=== PATIENT | female | born 1985 | race Caucasian/White ===

== ENCOUNTER → 2019-06-05 11:33 | Outpatient (CLI) | payer OTHER, SELFPAY ==
[2019-06-09 13:07] LABS: Age Gdln ACOG Testing 30-65 (.)
[2019-06-09 15:44] LABS: HPV APTIMA, High Risk Negative (Negative)
[2019-06-09 15:45] LABS: HPV Reflexed? YES, CHARGE PATIENT
== END ==
PROVIDERS: Visit Provider Obstetrics & Gynecology
DX: Z12.4 Encounter for screening for malignant neoplasm of cervix (principal)
CPT/HCPCS: 87624; 88175; G0145

== ENCOUNTER 2020-09-27 23:08 | Outpatient (RCR) | payer OTHER, SELFPAY ==
[2017-12-09 10:58] VITALS: BMI 23.0
== END 2020-10-21 23:59 ==
LOC: EMPH 23:08
PROVIDERS: PCP Family Medicine; Visit Provider Family Medicine Geriatric Medicine
DX: Z03.818 Encounter for observation for suspected exposure to other biological agents ruled out (principal)
CPT/HCPCS: 87426

== ENCOUNTER → 2022-01-14 | Outpatient (CLI) | payer OTHER, SELFPAY ==
[2022-01-15 11:14] LABS: Bacteria 0 SEEN /hpf (None Seen); Mucous, Urine 0 SEEN /hpf (<or=2+); Red Blood Cells-Urine 0 SEEN /hpf (0-5); Squamous Epithelial Cells - UA 0 SEEN /hpf (5-10)
[2022-01-15 11:30] LABS: Color, Urine Straw (Yellow); Glucose, Dipstick Normal (Normal); Ketone-Dipstick Negative (Negative); Leukocyte Esterase-Dipstick 25 /ul (Negative); Nitrite-Dipstick Negative (Negative); Occult Blood-Urine Negative /ul (Negative); Protein-Dipstick Negative (Negative); Urine Bilirubin Dipstick Negative (Negative); Urine Clarity Clear (Clear); Urine Urobilinogen Normal (Normal)
[2022-01-15 11:59] LABS: White Blood Cells 0-5 SEEN /hpf (0-5)
== END | disposition home or self-care (01) ==
LOC: LABSPEC 01-15 10:02
PROVIDERS: PCP Family Medicine; Visit Provider Physician Assistant Medical
DX: R39.15 Urgency of urination (principal); R35.0 Frequency of micturition
CPT/HCPCS: 81001; 87077; 87086; 87088; 87186

== ENCOUNTER → 2024-10-06 | Outpatient (CLI) | payer OTHER, SELFPAY ==
[2024-10-08 08:09] LABS: Thyroid Peroxidase AB 17 IU/mL (0-34)
[2024-10-09 14:08] LABS: HPV APTIMA, High Risk Negative (Negative)
== END | disposition home or self-care (01) ==
PROVIDERS: PCP Family Medicine; Referring Provider Nurse Practitioner Family; Visit Provider Nurse Practitioner Family
DX: Z13.29 Encounter for screening for other suspected endocrine disorder (principal); Z12.4 Encounter for screening for malignant neoplasm of cervix
CPT/HCPCS: 36415; 84439; 84443; 84481; 86376; 87624; 88175; G0145

== ENCOUNTER → 2025-06-19 | Outpatient (CLI) | payer OTHER, SELFPAY ==
[2025-06-19 13:58] VITALS: BP 141/94; PULSE 87; RESP 16; TEMP 37.2; O2SAT 98; BMI 29.2
--- NOTE | 2025-06-19 14:03 | ED.RN ---
pt was pre registered. dr kee told pt to come in to be seen private, not ed visit
--- OUTSIDE RECORDS SUMMARY | 2025-06-19 14:11 | XMS RPT_ITS | CCD ---
Author Organization [facility] Care Team Providers Care Engineering Specialist Name Role Phone Shamika Shepard DC Unavailable Dr. Swathi Bond Primary Care Provider Dr. Swathi Bond Referring Provider Dr. Shamika Shepard Attending Provider [phone] LYNNE, [place] Opal Murray Attending Provider Swathi Bond MD Primary Care Provider Unavailable Primary Care Provider UnavailDORI Rome Attending Unavailable Swathi oBnd MD Primary Care Provider Dr. Swathi Bond MD Primary Care Provider Dr. Swathi Bond MD Referring Provider Audelia DUCT CLEANER-CBecca Attending Provider Audelia DUCT CLEANER-CBecca Referring Provider Assessment, Health Risk Attending Swathi Saenz Primary Care Unavailable Swathi Bond Primary Care Unavailable Assessment, Health Risk Attending Unavaila ble Assessment, Health Risk Referring Unavaila Becca Simon Attending Unavailable Becca Win Referring Unavailable Swathi Bond Primary Care Unavailable Swathi Bond Primary Care Unavailable Swathi Bond Referring Unavailable Shamika Shepard Attending Unavailable Swathi Bond Primary Care Unavailable Swathi Bond Referring Unavailable Becca Win Attending Unavailable DARVIN RODRIGUEZ Attending Unavailable SWATHI BOND Primary Care Unavailable Medications Current Medications Medication Drug Class(es) Dates Sig (Normalized) Sig (Original) copper 313 mg drug implant (1 source) Copper-containing Intrauterine Device Start: 10-06-2024 Copper (Paragard T 380a) 380 square mm intrauterine device Active 1 NMA INTRA-UTER ONCE October 06, 2024 12:00am as a single dose [place] (Nk) (1 source) Start: 01-13-2019 [place] (Nk) Active January 13, 2019 12:00am Completed/Discontinued Medications Medication Drug Class(es) Dates Sig (Normalized) Sig (Original) amoxicillin 500 mg oral capsule (1 source) Penicillin-class Antibacterial Start: 09-29-2022 End: 05-06-2023 take 1 capsule by mouth three times daily Amoxicillin 500 mg capsule Discontinued 500 mg PO THREE TIMES A DAY September 29, 2022 12:00am May 06, 2023 10:05am amphetamine aspartate 2.5 mg / amphetamine sulfate 2.5 mg / dextroamphetamine saccharate 2.5 mg / dextroamphetamine sulfate 2.5 mg oral tablet (2 sources) Central Nervous System Stimulant Start: 05-06-2023 End: 10-06-2024 take 1 tablet by mouth every four to six hours as needed Dextroamphetamine- Amphetamine (Adderall) 10 mg tablet Discontinued 10 mg PO TWICE A DAY as needed June 02, 2024 10:13am October 06, 2024 1:11pm administer doses at least 4-6 hours apart azithromycin 250 mg oral tablet (1 source) Macrolide Antimicrobial Start: 09-28-2022 End: 09-29-2022 Azithromycin (Zithromax Z-Giancarlo) 250 mg tablet Discontinued 0 PO .COMPLEX 6 September 28, 2022 12:00am September 29, 2022 2:45pm For 250 mg dose pack: take 500 mg today (day 1), then 250 mg for 4 days (days 2-5) PO Ethinyl Estradiol / Levonorgestrel (1 source) Progestin, Estrogen, Progestin-containi ng Intrauterine Device Start: 08-31-2011 take 1 tablet by mouth once daily Levonorgestrel-Eth inyl Estrad (AVIANE) 0.1-20 mg-mcg ORAL per tablet Indications: General counseling for prescription of oral contraceptives Take 1 tablet by mouth once daily. 3 Package 2 08/31/2011 Active Comment on above: Take 1 tablet by esha once daily. ibuprofen 800 mg oral tablet (2 sources) Nonsteroidal Anti-inflammatory Drug Start: 03-06-2017 End: 12-09-2017 take 1 tablet by mouth three times daily as needed for pain Ibuprofen 800 MG tablet Discontinued 800 mg PO 3 TIMES DAILY NEEDED as needed for pain or cramping March 06, 2017 12:00am December 09, 2017 11:06am nitrofurantoin, macrocrystals 25 mg / nitrofurantoin, monohydrate 75 mg oral capsule (3 sources) Nitrofuran Antibacterial Start: 01-18-2022 End: 01-23-2022 take 1 capsule by mouth every twelve hours at mealtime Nitrofurantoin Monohyd/M-Cryst (Macrobid) 100 mg capsule Discontinued 100 mg PO Q12H 10 5 January 18, 2022 12:00am January 22, 2022 12:00am January 23, 2022 12:03am must administer with a meal/food Start: 12-09-2017 End: 12-16-2017 take 1 capsule by mouth every twelve hours at mealtime Nitrofurantoin Monohyd/M-Cryst (Macrobid) 100 mg capsule Discontinued 1 NMA PO Q12H 14 December 09, 2017 12:00am December 15, 2017 12:00am December 16, 2017 12:07am administer with a meal/food; swallow whole; do not open, crush, dissolve , or chew predniSONE 10 mg oral tablet (1 source) Start: 09-28-2022 End: 05-06-2023 Prednisone 10 mg tablet Discontinued 10 mg PO .COMPLEX September 28, 2022 12:00am May 06, 2023 10:05am Take 4 pills for 3 days, 3 pills for 3 days, 2 pills for 3 days, take 1 pill for 3 days Vit,Edkn48-Huof-Wkn ic (1 source) Start: 07-27-2015 End: 12-09-2017 take 1 tablet by mouth once daily Vit,Knpp13-Vwrj-Hhmp c Discontinued 1 TABLET PO DAILY 0 July 27, 2015 1:00am December 09, 2017 11:06am Vit,Oqkx34-Vovo-Oln ic 1 TABLET tablet (1 source) Start: 07-27-2015 End: 12-09-2017 take 1 tablet by mouth once daily Vit,Nlgl10-Zrcu-Hser c 1 TABLET tablet Discontinued 1 {tbl} PO DAILY July 27, 2015 1:00am December 09, 2017 11:06am Vit-Iron Fumarate-FA ( PLUS) 27-1 mg ORAL Tab (1 source) Start: 10-03-2011 take 1 tablet by mouth once daily Vit-Iron Fumarate-FA ( PLUS) 27-1 mg ORAL Tab Take 1 tablet by mouth once daily. 90 tablet 3 10/03/2011 Active Comment on above: Take 1 tablet by esha th once daily. W/O A VIT-FE FUM-FA (7 sources) Start: 10-23-2016 BP MULTINATAL PLUS 30-1 MG TABS 1 daily W/O A VIT-FE FUM-FA [id number] Lanny Richard W/O A VIT-FE FUM-FA (3 sources) Start: 10-23-2016 BP MULTINATAL PLUS 30-1 MG TABS 1 daily W/O A VIT-FE FUM-FA [id number] Lanny Richard Problems Active Problems Problem Classification Problem Date Documented Da te Episodic/Chronic Adjustment disorders (9 sources) Bereavement; Translations: [Adjustment disorder, unspecified] Onset: 11-15-2023 11-15-2023 Chronic Genitourinary symptoms and ill-defined conditions (2 sources) Female stress incontinence; Translations: [Stress incontinence (female) (male)] Onset: 04-05-2023 04-05-2023 Chronic Other bone disease and musculoskeletal deformities (20 sources) Segmental and somatic dysfunction; Translations: [Segmental and somatic dysfunction of cervical region] Onset: 10-23-2016 10-23-2016 Episodic Other nutritional; endocrine; and metabolic disorders (2 sources) Obese class I; Translations: [Obesity (BMI 30.0-34.9)] 04-20-2025 Chronic Residual codes; unclassified (2 sources) Influenza vaccination declined; Translations: [Immunization not carried out because of patient refusal] 04-20-2025 Episodic Spondylosis; intervertebral disc disorders; other back problems (1 source) Neck pain; Translations: [Cervicalgia] 05-06-2023 Episodic Unclassified (3 sources) care; Translations: [Encounter for supervision of other normal , second trimester] Onset: 10-23-2016 10-23-2016 Unclassified (2 sources) Annual Exam; Translations: [Annual Exam] Onset: 04-20-2025 Unclassified (2 sources) Health Maintenance; Translations: [Health Maintenance] Onset: 04-20-2025 Urinary tract infections (3 sources) Urinary tract infectious disease; Translations: [Urinary tract infection, site not specified] Episodic Past or Other Problems Problem Classification Problem Date Documented Da te Episodic/Chronic Contraceptive and procreative management (3 sources) Patient encounter status; Translations: [Encounter for removal of intrauterine contraceptive device] Onset: 10-06-2024 10-06-2024 Episodic Malaise and fatigue (7 sources) Fatigue; Translations: [Other fatigue] Onset: 10-30-2022 Resolved: 04-20-2025 10-30-2022 Episodic Normal and/or delivery (7 sources) Encounter for supervision of other normal , second trimester; Translations: [Encounter for supervision of other normal , second trimester] Onset: 10-23-2016 10-23-2016 Episodic Other bone disease and musculoskeletal deformities (2 sources) Segmental and somatic dysfunction of cervical region; Translations: [Nonallopathic lesions, cervical region] Onset: 07-01-2024 Episodic Other bone disease and musculoskeletal deformities (2 sources) Segmental and somatic dysfunction of lumbar region; Translations: [Nonallopathic lesions, lumbar region] Onset: 07-01-2024 Episodic Other bone disease and musculoskeletal deformities (2 sources) Segmental and somatic dysfunction of thoracic region; Translations: [Nonallopathic lesions, thoracic region] Onset: 07-01-2024 Episodic Other bone disease and musculoskeletal deformities (1 source) Segmental and somatic dysfunction of pelvic region; Translations: [Segmental and somatic dysfunction of pelvic region] Onset: 07-01-2024 Episodic Other lower respiratory disease (9 sources) Cough; Translations: [Cough] Onset: 10-30-2022 Resolved: 04-20-2025 10-30-2022 Episodic Other screening for suspected conditions (not mental disorders or infectious disease) (1 source) Encounter for screening for other suspected endocrine disorder; Translations: [Encounter for screening for other suspected endocrine disorder] Onset: 10-09-2024 Episodic Other upper respiratory infections (6 sources) Viral upper respiratory tract infection; Translations: [Acute upper respiratory infection, unspecified] Onset: 11-15-2023 Resolved: 04-20-2025 11-15-2023 Episodic Pneumonia (except that caused by tuberculosis or sexually transmitted disease) (8 sources) Pneumonia; Translations: [Pneumonia, unspecified organism] Onset: 10-30-2022 Resolved: 04-20-2025 10-30-2022 Episodic Sprains and strains (7 sources) Injury of abdominal wall; Translations: [Strain of muscle, fascia and tendon of abdomen, initial encounter] Onset: 10-30-2022 Resolved: 04-20-2025 10-30-2022 Episodic Results Test Name Value Interpretation Reference Range Facility Office Visiton 04-20-2025 Follow-up visit [id number] Dafne Zeng 1985 F Date Provider Department Center 04/20/2025 [id number] RODRIGUEZ [facility] Family History Problem Relation Age of Onset No Known Problems Father No Known Problems Mother Family Status - Relation Status Age at Father Alive Mother Alive Level of Service:60053 [place] PERIODIC PREVENTIVE MED EST PATIENT 18-39 YRS Reason for Visit and Comments: Annual Exam [83] Health Maintenance [872] - HIV Screening-declined MMR Vaccines-declined Varicella Vaccines-declined Hepatitis C Screening-declined Hepatitis B Vaccines-declined DTaP/Tdap/Td Vaccines-declined Depression Screening-completed Influenza Vaccine-declined COVID-19 Vaccine-declined [facility] Progress Noteon 04-20-2025 Progress Note 04/20/2025 Soraya Zeng (: 1985) is a 39 y.o. female , Established patient, here for evaluation of the following chief complaint(s): Annual Exam and Health Maintenance (HIV Screening-declined/MM R Vaccines-declined/Evangelina icella Vaccines-declined/Hep atitis C Screening-declined/He patitis B Vaccines-declined/DTa P/Tdap/Td Vaccines-declined/Dep ression Screening-completed/I nfluenza Vaccine-declined/COVI D-19 Vaccine-declined/) ASSESSMENT/PLAN: 1. Annual physical exam 2. Obesity (BMI 30.0-34.9) 3. Grieving 4. Influenza vaccine refused Patient here for physical exam. No acute concerns today. Chronic, uncontrolled. Patient gained 25 pounds in the last year. Discussed diet and exercise. Patient plans on getting a student success coach at her gym. Will continue to monitor. Patient still grieving loss of last year. She is going through counseling. Will continue to monitor. Patient denies vaccine at this time. Follow up for AWV in 1 year. SUBJECTIVE/OBJECTIVE: SIRIA Zeng (: 1985) is a 39 y.o. female , Established patient, here for the evaluation of the following chief complaint(s): Annual Exam and Health Maintenance (HIV Screening-declined/MM R Vaccines-declined/Evangelina icella Vaccines-declined/Hep atitis C Screening-declined/He patitis B Vaccines-declined/DTa P/Tdap/Td Vaccines-declined/Dep ression Screening-completed/I nfluenza Vaccine-declined/COVI D-19 Vaccine-declined/) Patient is here for annual physical exam. She had labs drawn earlier this month at [facility] for work. 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 CMP and Lipid panel were normal. Patient lives at home with her three children. Her last . She denies being depressed or anxious, just going through the normal grieving process. States she has a lot of support through her shinto, family, friends. She goes to counseling [place] [facility] [place] [facility] Vani Jarquin is her counselor. Patient goes to the gym twice a week. She has gained 25 pounds since her last October. She stress eats when she gets sad or misses him. Patient follows with [employer] for her pap smears and she is up to date. They recently took out an IUD she had. Patient denies any concerns today. Current Medications[1] Review of Systems Constitutional: Negative. HENT: Negative. Eyes: Negative. Respiratory: Negative. Cardiovascular: Negative. Gastrointestinal: Negative. Genitourinary: Negative. Musculoskeletal: Negative. Skin: Negative. Neurological: Negative. Psychiatric/Behaviora l: Still grieving lost . Vitals: 04/20/25 0942 BP: 102/72 Pulse: 80 Resp: 20 Temp: 37 ?C (98.6 ?F) TempSrc: Infrared SpO2: 96% Weight: 172 lb 12.8 oz (78.4 kg) Physical Exam Vitals reviewed. Constitutional: General: She is not in acute distress. Appearance: She is obese. She is not ill-appearing. HENT: Head: Normocephalic and atraumatic. Right Ear: Tympanic membrane, ear canal and external ear normal. Left Ear: Tympanic membrane, ear canal and external ear normal. Nose: Nose normal. Mouth/Throat: Mouth: Mucous membranes are moist. Pharynx: Oropharynx is clear. Eyes: Extraocular Movements: Extraocular movements intact. Conjunctiva/sclera: Conjunctivae normal. Pupils: Pupils are equal, round, and reactive to light. Cardiovascular: Rate and Rhythm: Normal rate and regular rhythm. Pulses: Normal pulses. Heart sounds: Normal heart sounds. Pulmonary: Effort: Pulmonary effort is normal. Breath sounds: Normal breath sounds. Abdominal: General: Abdomen is flat. Bowel sounds are normal. Palpations: Abdomen is soft. Musculoskeletal: General: Normal range of motion. Cervical back: Neck supple. Lymphadenopathy: Cervical: No cervical adenopathy. Skin: General: Skin is warm and dry. Capillary Refill: Capillary refill takes less than 2 seconds. Neurological: General: No focal deficit present. Mental Status: She is alert and oriented to person, place, and time. Mental status is at baseline. Psychiatric: Mood and Affect: Mood normal. Behavior: Behavior normal. An electronic signature was used to authenticate this note. KAL Leonard CNP 04/20/2025 1:32 PM [1] No current outpatient medications on file. No current facility-administered medications for this visit. [facility] Progress Note Patient was identified by name and Date of . Health Maintenance Due Topic HIV Screening-declined MMR Vaccines-declined Varicella Vaccines-declined Hepatitis C Screening-declined Hepatitis B Vaccines-declined DTaP/Tdap/Td Vaccines-declined Depression Screening-completed Influenza Vaccine-declined COVID-19 Vaccine-declined [facility] 36on 04-06-2025 36 Name of Caller: Soraya Zeng Contact Reason for Appointment: Physical needed prior to 05/23/2025 for insurance, patient scheduled for 06/30/2024 the next available. Office Name: [facility] Medication Refills need, if any: NA Medication Name: NA [facility] CBC, Employeeon 03-18-2025 Absolute Lymph 2.65 X10 3/uL Normal 0.83-4.51 [facility] Comment on above: Performed By: #### L 500.2900, L400.0100, L100.0200 #### [facility] [address] [place], [address] Absolute Neut 3.5 X10 3/uL Normal 2.0-7.7 [facility] Comment on above: Performed By: #### L 500.2900, L400.0100, L100.0200 #### [facility] [address] [place], [address] Basophils/100 WBC (Bld) 0.3 % Normal 0-1 [facility] Comment on above: Performed By: #### L 500.2900, L400.0100, L100.0200 #### [facility] [address] [place], [address] Eosinophils/100 WBC (Bld) 1.2 % Normal 0-5 [facility] Comment on above: Performed By: #### L 500.2900, L400.0100, L100.0200 #### [facility] [address] [place], [address] Erythrocyte distribution width (RBC) [Ratio] 11.9 % Normal 11.6-14.6 [facility] Comment on above: Performed By: #### L 500.2900, L400.0100, L100.0200 #### [facility] [address] [place], [address] Hematocrit (Bld) [Volume fraction] 40.6 % Normal 37-47 [facility] Comment on above: Performed By: #### L 500.2900, L400.0100, L100.0200 #### [facility] [address] [place], [address] Hemoglobin (Bld) [Mass/Vol] 14.3 g/dL Normal 12.0-15.0 [facility] Comment on above: Performed By: #### L 500.2900, L400.0100, L100.0200 #### [facility] [address] [place], [address] Lymphocytes/100 WBC (Bld) 39.1 % Normal 19-41 [facility] Comment on above: Performed By: #### L 500.2900, L400.0100, L100.0200 #### [facility] [address] [place], [address] MCH (RBC) [Entitic mass] 29.7 pg Normal 27.0-32.0 [facility] Comment on above: Performed By: #### L 500.2900, L400.0100, L100.0200 #### [facility] [address] [place], [address] MCHC (RBC) [Mass/Vol] 35.2 g/dL Normal 32-36 [facility] Comment on above: Performed By: #### L 500.2900, L400.0100, L100.0200 #### [facility] [address] [place], [address] MCV (RBC) [Entitic vol] 84.2 fL Normal 81-99 [facility] Comment on above: Performed By: #### L 500.2900, L400.0100, L100.0200 #### [facility] [address] [place], [address] Monocytes/100 WBC (Bld) 7.1 % Normal 0-10 [facility] Comment on above: Performed By: #### L 500.2900, L400.0100, L100.0200 #### [facility] [address] [place], [address] Neutrophils/100 WBC (Bld) 52.2 % Normal 47-70 [facility] Comment on above: Performed By: #### L 500.2900, L400.0100, L100.0200 #### [facility] [address] [place], [address] NRBC # 0.00 10 3/uL Normal 0-5 [facility] Comment on above: Performed By: #### L 500.2900, L400.0100, L100.0200 #### [facility] [address] [place], [address] Nucleated RBC (Bld) [#/Vol] 0 10*3/uL Normal 0-5 [facility] Comment on above: Performed By: #### L 500.2900, L400.0100, L100.0200 #### [facility] [address] [place], [address] Platelet mean volume (Bld) [Entitic vol] 10.9 fL Normal 6.2-12.0 [facility] Comment on above: Performed By: #### L 500.2900, L400.0100, L100.0200 #### [facility] [address] [place], [address] Platelets (Bld) [#/Vol] 220 10*3/uL Normal 150-450 [facility] Comment on above: Performed By: #### L 500.2900, L400.0100, L100.0200 #### [facility] [address] [place], [address] RBC (Bld) [#/Vol] 4.82 10*6/uL Normal 4.2-5.4 [facility] Comment on above: Performed By: #### L 500.2900, L400.0100, L100.0200 #### [facility] [address] [place], [address] RDW SD 36.1 fl Normal 35.1-43.9 [facility] Comment on above: Performed By: #### L 500.2900, L400.0100, L100.0200 #### [facility] [address] [place], [address] WBC (Bld) [#/Vol] 6.8 10*3/uL Normal 4.4-11.0 [facility] Comment on above: Performed By: #### L 500.2900, L400.0100, L100.0200 #### [facility] [address] [place], [address] Employee Profileon LDH 178 U/L Normal 84-246 [facility] Comment on above: Performed By: #### L 400.0100, L500.2900, L100.0200 #### [facility] [address] [place], [address] Phosphate [Mass/Vol] 3.4 mg/dL Normal 2.7-4.5 [facility] Comment on above: Performed By: #### L 400.0100, L500.2900, L100.0200 #### [facility] [address] [place], [address] URIC 5.0 mg/dL Normal 2.6-6.0 [facility] Comment on above: Result Comment: The drugs N-Acetylcysteine and Metamizole may falsely depress this assay. Performed By: #### L 400.0100, L500.2900, L100.0200 #### [facility] [address] [place], [address] Urinalysis, Employeeon 03-18 BILIRUBIN URINE Negative Normal Negative [facility] Comment on above: Order Comment: Urine , Random Performed By: #### L 400.0100, L500.2900, L100.0200 #### [facility] [address] [place], [address] Clarity (U) Clear Normal Clear [facility] Comment on above: Order Comment: Urine , Random Performed By: #### L 400.0100, L500.2900, L100.0200 #### [facility] [address] [place], [address] Color (U) Yellow Normal Yellow [facility] Comment on above: Order Comment: Urine , Random Performed By: #### L 400.0100, L500.2900, L100.0200 #### [facility] [address] [place], [address] GLUCOSE, UR Normal Normal Normal [facility] Comment on above: Order Comment: Urine , Random Performed By: #### L 400.0100, L500.2900, L100.0200 #### [facility] [address] [place], [address] KETONE UR Negative Normal Negative [facility] Comment on above: Order Comment: Urine , Random Performed By: #### L 400.0100, L500.2900, L100.0200 #### [facility] [address] [place], [address] LEUK ESTERASE Negative Normal Negative [facility] Comment on above: Order Comment: Urine , Random Performed By: #### L 400.0100, L500.2900, L100.0200 #### [facility] [address] [place], [address] Nitrite Ql (U) Negative Normal Negative [facility] Comment on above: Order Comment: Urine , Random Performed By: #### L 400.0100, L500.2900, L100.0200 #### [facility] [address] [place], [address] OCCULT BLOOD-UR Negative Normal Negative [facility] Comment on above: Order Comment: Urine , Random Performed By: #### L 400.0100, L500.2900, L100.0200 #### [facility] [address] [place], [address] pH UR 6.5 Normal 5.0 - 8.0 [facility] Comment on above: Order Comment: Urine , Random Performed By: #### L 400.0100, L500.2900, L100.0200 #### [facility] [address] [place], [address] PROT DIPSTX Negative Normal Negative [facility] Comment on above: Order Comment: Urine , Random Performed By: #### L 400.0100, L500.2900, L100.0200 #### [facility] [address] [place], [address] SP.GR. DIPSTX 1.010 Normal 1.002-1.030 [facility] Comment on above: Order Comment: Urine , Random Performed By: #### L 400.0100, L500.2900, L100.0200 #### [facility] [address] [place], [address] UROBILI Normal Normal Normal [facility] Comment on above: Order Comment: Urine , Random Performed By: #### L 400.0100, L500.2900, L100.0200 #### [facility] [address] [place], [address] PAP IG HPV APTIMA 16/18,45on 10-09-2024 ADEQ Comment Normal . [facility] Comment on above: Order Comment: Speci men Comment: [id number] Comment: Source.............Cervix;EndocervixSpecimen Comment: No. of containers..01 ThinPrep Vial Result Comment: Sati sfactory for evaluation. Endocervical and/or squamous metaplastic cells (endocervical component) are present. Performed By: #### L 400.0100, L500.2900, L100.0200 #### [facility] [address] [place], [address] COMM . Normal . [facility] Comment on above: Order Comment: Speci men Comment: [id number] Comment: Source.............Cervix;EndocervixSpecimen Comment: No. of containers..01 ThinPrep Vial Performed By: #### L 400.0100, L500.2900, L100.0200 #### [facility] [address] [place], [place], [address] COMMENT Comment Normal . [facility] Comment on above: Order Comment: Speci men Comment: [id number] Comment: Source.............Cervix;EndocervixSpecimen Comment: No. of containers..01 ThinPrep Vial Result Comment: This liquid based ThinPrep(R) pap test was screened with the use of an image guided system. Performed By: #### L 400.0100, L500.2900, L100.0200 #### [facility] [address] [place], [place], [id number] DIAG Comment Normal . [facility] Comment on above: Order Comment: Speci men Comment: [id number] Comment: Source.............Cervix;EndocervixSpecimen Comment: No. of containers..01 ThinPrep Vial Result Comment: NEGA TIVE FOR INTRAEPITHELIAL LESION OR MALIGNANCY. Performed By: #### L 400.0100, L500.2900, L100.0200 #### [facility] [address] [place], [place], [address] HPV APTIMA, HR Negative Normal Negative [facility] Comment on above: Order Comment: Speci men Comment: [id number] Comment: Source.............Cervix;EndocervixSpecimen Comment: No. of containers..01 ThinPrep Vial Result Comment: This nucleic acid amplification test detects fourteen high- risk HPV types (16,18,31,33,35,39,45,51,52,56,58,59,66,68) without differentiation. Performed By: #### L 400.0100, L500.2900, L100.0200 #### [facility] [address] [place], [place], [address] HPV Lisa Rfx Comment Normal . [facility] Comment on above: Order Comment: Speci men Comment: [id number] Comment: Source.............Cervix;EndocervixSpecimen Comment: No. of containers..01 ThinPrep Vial Result Comment: Crit eria not met, HPV Genotype not performed. Performed at: [facility] [address] [address] [place], [place] [id number] Wood Cutter: Srikanth Maldonado MD, Phone: [phone] Performed at: - [address] [id number] Wood Cutter: Margret Martinez MD, Phone: [phone] Performed at: = - [address] [id number] Wood Cutter: Margret Martinez MD, Phone: [phone] Performed By: #### L 400.0100, L500.2900, L100.0200 #### [facility] [address] [place], [place], [id number] PAPSMR Comment Normal . [facility] Comment on above: Order Comment: Speci men Comment: [id number] Comment: Source.............Cervix;EndocervixSpecimen Comment: No. of containers..01 ThinPrep Vial Result Comment: The Pap smear is a screening test designed to aid in the detection of premalignant and malignant conditions of the uterine cervix. It is not a diagnostic procedure and should not be used as the sole means of detecting cervical cancer. Both false-positive and false-negative reports do occur. Performed By: #### L 400.0100, L500.2900, L100.0200 #### [facility] [address] [place], [place], [address] PERFORM Comment Normal . [facility] Comment on above: Order Comment: Speci men Comment: [id number] Comment: Source.............Cervix;EndocervixSpecimen Comment: No. of containers..01 ThinPrep Vial Result Comment: Dottie Barnes, Hide Grader (ASCP) Performed By: #### L 400.0100, L500.2900, L100.0200 #### [facility] [address] [place], [place], [id number] Thyroid Peroxidase ABon - THYR PEROX AB 17 IU/mL Normal 0-34 [facility] Comment on above: Result Comment: Perf ormed at: [facility] [address] [id number] Wood Cutter: Juan Salgado PhD, Phone: [phone] Performed By: #### L 501.55830, L3300.0938, L501.7533, L506.6657 #### [facility] [address] [place], [place], [address] Global Product Manager Cyto stain Nom (C vx/Vag) [ID]Ordered By: Becca Win on 10-06-2024 Pap Smear Performed By Comment . [facility] Comment on above: Dottie Barnes, Cytotec hnologist (ASCP) Cytology report Cyto stain D oc (Cvx/Vag)Ordered By: Becca Win on 10-06-2024 Thin Prep Pap Smear Comment . [facility] Comment on above: The Pap smear is a s creening test designed to aid in thedetection of premalignant and malignant conditions of theuterine cervix. It is not a diagnostic procedure andshould not be used as the sole means of detecting cervicalcancer. Both false-positive and false-negative reports dooccur. Cytology report Cyto stain.t hin prep Doc (Cvx/Vag)Ordered By: Becca Win on 10-06-2024 HPV Genotype Special Info Comment . [facility] Comment on above: Criteria not met, HP V Genotype not performed.Performed at: [facility] [id number] [place], [place] [id number] Director: Srikanth Maldonado MD, Phone: [phone] at: [facility] - [facility] [address] [id number] Director: Margret Martinez MD, Phone: [phone] at: =G - [facility] [address] [id number] Director: Margret Martinez MD, Phone: [phone] Free T3on 10-06-2024 Free T3 [Mass/Vol] 3.0 pg/mL Normal 2.18-3.98 [facility] Comment on above: Performed By: #### L 501.45236, L3300.6900, L501.9520, L506.0400 #### [facility] [address] [place] [address]. [place], [address] Free G2Pxyhmje By: Becca sanches on 10-06-2024 Free Triiodothyronine (T3) pg/dL 3.0 pg/mL 2.18-3.98 [facility] HPV 16+18+31+33+35+39+45+51+ 52+56+58+59+66+68 DNA Probe+sig amp Ql (Cvx)Ordered By: Becca Win on 10-06-2024 Human Papillomavirus High Risk Negative Negative [facility] Comment on above: This nucleic acid am plification test detects fourteen high- risk HPV types (16,18,31,33,35,39,45,51,52,56,58,59,66,68)without differentiation. Image-guided ThinPrep PapOrd ered By: Becca Win on 10-06-2024 Pap Smear Note Comment . [facility] Comment on above: This liquid based Th inPrep(R) pap test was screened withthe use of an image guided system. Image-guided liquid-based Pa pOrdered By: Becca Win on 10-06-2024 Pap Smear Diagnosis Comment . [facility] Comment on above: NEGATIVE FOR INTRAEP ITHELIAL LESION OR MALIGNANCY. 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 Required: No Is patient in pain?: No Allergies No Known Allergies Allergy (Verified 10/06/24 13:05) Medications ???Medication ???Instructions ???Recorded ???Confirmed ???Type copper 380 square mm intrauterine 1 device intrauterine ONCE 10/06/24 History device (ParaGard T 380A) Is last menstrual period known: No Post menopausal: No Patient : No : No Control Method: paragard- placed 2016 [facility] Family History (Updated 10/06/24 @ 13:23 by ESTELA Oliveira) Grandmother Breast cancer Social History adopted: No Smoking Status: Never smoker History 4 Elective abortions Hx Para 3 Spontaneous abortions Hx # Term Pregnancies Ectopic pregnancies Hx # Pregnancies Multiple births # of living children HPI Encounter for routine gynecological examination Details: SORAYA ZENG is a 38 year old who presents for annual exam. She is here to establish. Her recently . She is interested in having her IUD removed. She has paragaurd; placed 2016. She does not plan to be sexually active in the near future. Last PAP: 2019; normal. HPV neg. History of abnormal PAP: no. Last mammogram: age 42 History of abnormal mammogram: n/a Colon cancer screening: age 47 Other preventative health care screenings: Swathi Young; PCP. Female Reproductive History Last Menstrual Period: 10/04/24 Cycle Length: 21-35 Bleeding Duration: 8 Questions: metorrhagia: No, sexually active: No (not currently), dyspareunia: No and PCB: No ROS Const Constitutional: Denies chills, fatigue, fever(s), headache(s) or weight loss Eyes Eyes: Denies change in vision ENT ENT: Denies dizziness Resp Resp: Denies cough GI GI: Denies abdominal pain, constipation or nausea : Denies difficulty voiding, dysuria, hematuria, nipple discharge, pelvic pain, prolapse symptoms, urinary incontinence, vaginal discharge, vaginal dryness, vaginal odor or vaginal pruritus Skin Skin/Breast: Denies alopecia, rash, breast mass, breast pain, breast skin changes or nipple discharge Neuro Neuro: Denies dizziness Psych Psych: Denies anxiety or depression Endo Endo: Denies cold intolerance, excessive sweating or heat intolerance Exam Const General: cooperative, healthy appearing, comfortable, no acute distress, well groomed and well hydrated Nutritional Appearance: well nourished Orientation: alert, awake and oriented x3 HENMT Head: normal to inspection and normocephalic Ears: hearing grossly normal bilaterally and external ears normal Nose: external nose normal Face and sinus: normal facial exam Eyes General: appearance normal, both eyes and all related structures Neck Neck: normal visual inspection, full ROM and no lymphadenopathy Thyroid: thyroid normal Chest Chest palpation inspection: normal inspection of the chest Breast inspection: normal inspection of the breasts and normal inspection of the axillae Breast palpation: normal palpation of the breasts, normal palpation of the axillae and no axillary lymphadenopathy Resp Effort Inspection: normal respiratory effort, able to speak in complete sentences and symmetric chest movement GI Inspection: normal to inspection Palpation: soft and no hepatosplenomegaly General: bladder normal to palpation External Female Exam: normal external appearance and normal appearance of the urethra Urethra: normal appearance of the urethra Speculum Exam - Vagina: normal appearance of the vagina, normal vaginal discharge, no lesions and nontender Speculum Exam - Cervix: normal appearance of the cervix (menses present; IUD strings noted. ), no lesions and no masses Bimanual Exam- Vagina Uterus: normal bimanual exam, uterine size normal, bladder normal to palpation, normal palpation and non-tender Bimanual Exam- Adnexa, other: normal adnexae, no masses, normal and non-tender Pelvic Support: normal Skin General: no rashes or lesions noted Neuro General: patient alert, patient awake, patient oriented x3 and moves all extremities Psych Appearance: grossly normal Mental Status: mental status grossly normal Affect: normal affect Speech and Movement: speech and movement n (more content not included)... Normal [facility] comment (Unsp spec) [Interp]Ordered By: Becca Win on 10-06-2024 Pap Smear Comment (3) . . [facility] T4 Free Directon 10-06-2024 T4 FREE DIRECT 1.00 ng/dL Normal 0.76-1.46 [facility] Comment on above: Performed By: #### L 501.91115, L3300.6900, L501.9520, L506.0400 #### [facility] [address] [place], [address] T4 freeOrdered By: Becca sanches on 10-06-2024 Free T4 [Mass/Vol] 1.00 ng/dL 0.76-1.46 [facility] TPO Ab QnOrdered By: Becca Win on 10-06-2024 Thyroid Peroxidase Antibodies 17 IU/mL 0-34 [facility] Comment on above: Performed at: [place] [id number] Director: Juan Salgado PhD, Phone: [phone] TSH DL <= 0.005 mIU/L QnOrde red By: Becca Win on 10-06-2024 Thyroid Stimulating Hormone (TSH) 2.050 uIU/mL 0.300-4.200 [facility] Thyroid Stim Hormone (TSH)on 10-06-2024 TSH 2.050 uIU/mL Normal 0.300-4.200 [facility] Comment on above: Performed By: #### L 501.87084, L3300.6900, L501.9520, L506.0400 #### [facility] [address] [place], [address] Chiropractic Reporton 2023 Chiropractic Report [facility] [address] [place] [address] OFFICE VISIT Date of Service: 06/02/24 MR#: [id number] Acct: [id number] Name: SORAYA ZENG Rep #: [id number] : 1985 Provider: LORAINE Pina Age/Sex: 38/F Location: [facility] [place] Status: Signed Intake Vital Signs 05/06/23 09:04 06/02/24 09:12 Height 5 ft 3 in 5 ft 3 in Weight: 159 lb BMI 28.1 Intake Visit Reasons: Back pain Chief Complaint: neck/back soreness Accompanied by: Self Is patient in pain?: No Allergies No Known Allergies Allergy (Verified 06/02/24 09:12) Medications ???Medication ???Instructions ???Recorded ???Confirmed ???Type dextroamphetamine-amp hetamine 10 10 mg PO BID PRN 06/02/24 06/02/24 History mg tablet (Adderall) PFSH Social History Smoking Status: Never smoker HPI Back pain Chief Complaint: neck, low back pain Visit Number: 2 Location: neck, low back Duration: intermittent Aggravating or associated factors: prolonged standing, working out Relieving factors: chiro Pain Quality: aching and dull HPI Comments Details: Soraya is a 38 y/o female here for a re-evaluation of back pain. Pt. advises she experiences neck and back soreness intermittently. 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 Weight lifting and cardio a couple times a week with mild neck tightness and back soreness at times. Her left wrist pain resolved. Pt. denies numbness, tingling or radiculopathy. She states chiropractic adjustments have been effective in the past. Exam Musc General: Yes normal posture, normal gait and joint tenderness; No muscle weakness Cervical Spine: Yes normal cervical lordosis, Yes cervical muscular tenderness bilateral diffuse , Yes cervical spasm (L suboccipital, bilat trap) and Yes misalignment misalignment: C2, C5 and C6 Thoracic/Lumber: Yes thoracic and lumbar spine normal to inspection, Yes paraspinal tenderness bilaterally in the upper thoracic, in the mid thoracic and in the lower lumbar, Yes thoraco-lumbar spasm bilaterally (trap, levator) in the upper thoracic and in the mid thoracic and on the right greater than left (QL, and lumbar paraspinal) and Yes misalignment T3, T4, L3, L4, L5 and RIL Sacroiliac joints: bilaterally tender to palpation Office Procedures Procedures - Chiropractic Procedures Stimulation: without Manipulation: Cervical C2 and C6, Lumbar L4, Thoracic T4 and Pelvis RIL Manipulation: 3-4 regions Electronic Stimulation: No Therapy Performed by:: Dr. Shamika Shepard DC Traction, Mechanical: No Theraputic Ultrasound: No Hot and/or cold packs: Yes Patient Response: positive Assessment and Plan Assessment and Plan (1) Segmental and somatic dysfunction of pelvic region: Status: Acute (2) Segmental and somatic dysfunction of thoracic region: Status: Acute (3) Segmental and somatic dysfunction of lumbar region: Status: Acute (4) Segmental and somatic dysfunction of cervical region: Status: Acute Orders: Orders Chiropractic Treatments Today M99.01 - Segmental and somatic dysfunction of cervical region, M99.02 - Segmental and somatic dysfunction of thoracic region, M99.03 - Segmental and somatic dysfunction of lumbar region, M99.05 - Segmental and somatic dysfunction of pelvic region Plan Patient was treated without incident. She will follow up on PRN basis. Plan Details Goals Barriers: Goals Decrease pain Decrease spasm Decrease inflammation Follow Up: PRN Coding Level of Care Code No Charge Diagnoses Segmental and somatic dysfunction of pelvic region M99.05 Segmental and somatic dysfunction of thoracic region M99.02 Segmental and somatic dysfunction of lumbar region M99.03 Segmental and somatic dysfunction of cervical region M99.01 CPT Codes Procedures - Manipulation: 3-4 regions (30250) Procedures - Hot and/or cold packs: Yes (23219) 06/02/24 1229 Date Shamika Rangelignelma Signature: Date (if applicable) CC: Normal [facility] CBC, Employeeon 05-18-2024 Absolute Lymph 2.81 X10 3/uL Normal 0.83-4.51 [facility] Comment on above: Performed By: #### L 400.0100, L500.2900, L100.0200 #### [facility] [address] [place], [address] Absolute Neut 5.8 X10 3/uL Normal 2.0-7.7 [facility] Comment on above: Performed By: #### L 400.0100, L500.2900, L100.0200 #### [facility] [address] [place], [address] Basophils/100 WBC (Bld) 0.3 % Normal 0-1 [facility] Comment on above: Performed By: #### L 400.0100, L500.2900, L100.0200 #### [facility] [address] [place], [address] Eosinophils/100 WBC (Bld) 1.1 % Normal 0-5 [facility] Comment on above: Performed By: #### L 400.0100, L500.2900, L100.0200 #### [facility] [address] [place], [address] Erythrocyte distribution width (RBC) [Ratio] 11.8 % Normal 11.6-14.6 [facility] Comment on above: Performed By: #### L 400.0100, L500.2900, L100.0200 #### [facility] [address] [place], [address] Hematocrit (Bld) [Volume fraction] 37.5 % Normal 37-47 [facility] Comment on above: Performed By: #### L 400.0100, L500.2900, L100.0200 #### [facility] [address] [place], [address] Hemoglobin (Bld) [Mass/Vol] 13.0 g/dL Normal 12.0-15.0 [facility] Comment on above: Performed By: #### L 400.0100, L500.2900, L100.0200 #### [facility] [address] [place], [address] Lymphocytes/100 WBC (Bld) 30.0 % Normal 19-41 [facility] Comment on above: Performed By: #### L 400.0100, L500.2900, L100.0200 #### [facility] [address] [place], [address] MCH (RBC) [Entitic mass] 29.7 pg Normal 27.0-32.0 [facility] Comment on above: Performed By: #### L 400.0100, L500.2900, L100.0200 #### [facility] [address] [place], [address] MCHC (RBC) [Mass/Vol] 34.7 g/dL Normal 32-36 [facility] Comment on above: Performed By: #### L 400.0100, L500.2900, L100.0200 #### [facility] [address] [place], [address] MCV (RBC) [Entitic vol] 85.6 fL Normal 81-99 [facility] Comment on above: Performed By: #### L 400.0100, L500.2900, L100.0200 #### [facility] [address] [place], [address] Monocytes/100 WBC (Bld) 5.9 % Normal 0-10 [facility] Comment on above: Performed By: #### L 400.0100, L500.2900, L100.0200 #### [facility] [address] [place], [address] Neutrophils/100 WBC (Bld) 62.3 % Normal 47-70 [facility] Comment on above: Performed By: #### L 400.0100, L500.2900, L100.0200 #### [facility] [address] [place], [address] NRBC # 0.00 10 3/uL Normal 0-5 [facility] Comment on above: Performed By: #### L 400.0100, L500.2900, L100.0200 #### [facility] [address] [place], [address] Nucleated RBC (Bld) [#/Vol] 0 10*3/uL Normal 0-5 [facility] Comment on above: Performed By: #### L 400.0100, L500.2900, L100.0200 #### [facility] [address] [place], [address] Platelet mean volume (Bld) [Entitic vol] 10.4 fL Normal 6.2-12.0 [facility] Comment on above: Performed By: #### L 400.0100, L500.2900, L100.0200 #### [facility] [address] [place], [address] Platelets (Bld) [#/Vol] 226 10*3/uL Normal 150-450 [facility] Comment on above: Performed By: #### L 400.0100, L500.2900, L100.0200 #### [facility] [address] [place], [address] RBC (Bld) [#/Vol] 4.38 10*6/uL Normal 4.2-5.4 [facility] Comment on above: Performed By: #### L 400.0100, L500.2900, L100.0200 #### [facility] [address] [place], [address] RDW SD 36.7 fl Normal 35.1-43.9 [facility] Comment on above: Performed By: #### L 400.0100, L500.2900, L100.0200 #### [facility] [address] [place], [address] WBC (Bld) [#/Vol] 9.4 10*3/uL Normal 4.4-11.0 [facility] Comment on above: Performed By: #### L 400.0100, L500.2900, L100.0200 #### [facility] [address] [place], [address] Employee Profileon Albumin [Mass/Vol] 4.0 g/dL Normal 3.2-5.0 [facility] Comment on above: Performed By: #### L 400.0100, L500.2900, L100.0200 #### [facility] [address] [place], [address] Albumin/Globulin [Mass ratio] 1.2 {ratio} Normal 0.9-2.4 [facility] Comment on above: Performed By: #### L 400.0100, L500.2900, L100.0200 #### [facility] [address] [place], [address] ALK P 61 U/L Normal 45-117 [facility] Comment on above: Performed By: #### L 400.0100, L500.2900, L100.0200 #### [facility] [address] [place], [address] ALT [Catalytic activity/Vol] 25 U/L Normal 13-56 [facility] Comment on above: Performed By: #### L 400.0100, L500.2900, L100.0200 #### [facility] [address] [place], [address] AST [Catalytic activity/Vol] 19 U/L Normal 15-37 [facility] Comment on above: Performed By: #### L 400.0100, L500.2900, L100.0200 #### [facility] [address] [place], [address] Bilirubin [Mass/Vol] 1.30 mg/dL High 0.20-1.00 [facility] Comment on above: Result Comment: For patients on eltrombopag therapy, use of Dimension Phelps TBIL is not recommended. Performed By: #### L 400.0100, L500.2900, L100.0200 #### [facility] [address] [place], [address] Bilirubin.direct [Mass/Vol] 0.31 mg/dL High 0.00-0.30 [facility] Comment on above: Performed By: #### L 400.0100, L500.2900, L100.0200 #### [facility] [address] [place], [address] BUN/CRE 14.7 RATIO Normal 10-20 [facility] Comment on above: Performed By: #### L 400.0100, L500.2900, L100.0200 #### [facility] [address] [place], [address] CA,Total 8.7 mg/dL Normal 8.5-10.1 [facility] Comment on above: Performed By: #### L 400.0100, L500.2900, L100.0200 #### [facility] [address] [place], [address] Chloride [Moles/Vol] 107 mmol/L Normal 98-107 [facility] Comment on above: Performed By: #### L 400.0100, L500.2900, L100.0200 #### [facility] [address] [place], [address] CHOL:HDL 2.10 Normal [facility] Comment on above: Performed By: #### L 400.0100, L500.2900, L100.0200 #### [facility] [address] [place], [address] Cholesterol [Mass/Vol] 163 mg/dL Normal 200 [facility] Comment on above: Result Comment: <200 mg/dL Desirable 200-240 mg/dL Borderline >240 mg/dL High Risk Performed By: #### L 400.0100, L500.2900, L100.0200 #### [facility] [address] [place], [address] Cholesterol in HDL [Mass/Vol] 79 mg/dL Normal [facility] Comment on above: Result Comment: The drugs N-Acetylcysteine and Metamizole may falsely depress this assay. Reference Range HDL <40 mg/dL Low HDL Cholesterol HDL >or= 60 mg/dL High HDL Cholesterol Performed By: #### L 400.0100, L500.2900, L100.0200 #### [facility] [address] [place], [address] Cholesterol in LDL [Mass/Vol] 71 mg/dL Normal 0-130 [facility] Comment on above: Performed By: #### L 400.0100, L500.2900, L100.0200 #### [facility] [address] [place], [address] Cholesterol in VLDL [Mass/Vol] 13 mg/dL Normal 5-40 [facility] Comment on above: Performed By: #### L 400.0100, L500.2900, L100.0200 #### [facility] [address] [place], [address] CO2 [Moles/Vol] 26.0 mmol/L Normal 21.0-32.0 [facility] Comment on above: Performed By: #### L 400.0100, L500.2900, L100.0200 #### [facility] [address] [place], [address] Creatinine [Mass/Vol] 0.81 mg/dL Normal 0.55-1.02 [facility] Comment on above: Result Comment: The validity of the calculated GFR GFRAA in patients over 70 years has not been determined. Clinical correlation is essential. Performed By: #### L 400.0100, L500.2900, L100.0200 #### [facility] [address] [place], [address] EST GFR - AA 102 mL/min Normal >60 [facility] Comment on above: Result Comment: Afri can Croatian GFR Calc Performed By: #### L 400.0100, L500.2900, L100.0200 #### [facility] [address] [place], [address] GAP 5 Normal 5-15 [facility] Comment on above: Performed By: #### L 400.0100, L500.2900, L100.0200 #### [facility] [address] [place], [address] GFR/1.73 sq M.predicted among non-blacks MDRD (S/P/Bld) [Vol rate/Area] 84 mL/min/{1.73_m2} Normal >60 [facility] Comment on above: Result Comment: Non- GFR Calc Performed By: #### L 400.0100, L500.2900, L100.0200 #### [facility] [address] [place], [address] Globulin (S) [Mass/Vol] 3.4 g/dL Normal 2.2-4.2 [facility] Comment on above: Performed By: #### L 400.0100, L500.2900, L100.0200 #### [facility] [address] [place], [address] Glucose [Mass/Vol] 86 mg/dL Normal 74-106 [facility] Comment on above: Performed By: #### L 400.0100, L500.2900, L100.0200 #### [facility] [address] [place], [address] LDH 147 U/L Normal 84-246 [facility] Comment on above: Performed By: #### L 400.0100, L500.2900, L100.0200 #### [facility] [address] [place], [address] Phosphate [Mass/Vol] 3.4 mg/dL Normal 2.5-4.9 [facility] Comment on above: Performed By: #### L 400.0100, L500.2900, L100.0200 #### [facility] [address] [place], [address] Potassium [Moles/Vol] 3.9 mmol/L Normal 3.5-5.1 [facility] Comment on above: Performed By: #### L 400.0100, L500.2900, L100.0200 #### [facility] [address] [place], [address] Sodium [Moles/Vol] 138 mmol/L Normal 136-145 [facility] Comment on above: Performed By: #### L 400.0100, L500.2900, L100.0200 #### [facility] [address] [place], [address] T PROT 7.4 g/dL Normal 6.4-8.2 [facility] Comment on above: Performed By: #### L 400.0100, L500.2900, L100.0200 #### [facility] [address] [place], [address] Triglyceride [Mass/Vol] 67 mg/dL Normal [facility] Comment on above: Result Comment: The drugs N-Acetylcysteine and Metamizole may falsely depress this assay. Serum Triglycerides Reference Interval Normal <150 mg/dL Borderline high 150 - 199 mg/dL High 200 - 499 mg/dL Very High > or = 500 mg/dL Performed By: #### L 400.0100, L500.2900, L100.0200 #### [facility] [address] [place], [address] Urea nitrogen [Mass/Vol] 12 mg/dL Normal 7-18 [facility] Comment on above: Performed By: #### L 400.0100, L500.2900, L100.0200 #### [facility] [address] [place], [address] URIC 4.3 mg/dL Normal 2.6-6.0 [facility] Comment on above: Result Comment: The drugs N-Acetylcysteine and Metamizole may falsely depress this assay. Performed By: #### L 400.0100, L500.2900, L100.0200 #### [facility] [address] [place], [address] Urinalysis, Employeeon 05-18 BILIRUBIN URINE Negative Normal Negative [facility] Comment on above: Order Comment: CLEAN CATCH Performed By: #### L 400.0100, L500.2900, L100.0200 #### [facility] [address] [place], [address] Clarity (U) Clear Normal Clear [facility] Comment on above: Order Comment: CLEAN CATCH Performed By: #### L 400.0100, L500.2900, L100.0200 #### [facility] [address] [place], [address] Color (U) Yellow Normal Yellow [facility] Comment on above: Order Comment: CLEAN CATCH Performed By: #### L 400.0100, L500.2900, L100.0200 #### [facility] [address] [place], [address] GLUCOSE, UR Normal Normal Normal [facility] Comment on above: Order Comment: CLEAN CATCH Performed By: #### L 400.0100, L500.2900, L100.0200 #### [facility] [address] [place], [address] KETONE UR Negative Normal Negative [facility] Comment on above: Order Comment: CLEAN CATCH Performed By: #### L 400.0100, L500.2900, L100.0200 #### [facility] [address] [place], [address] LEUK ESTERASE 25 /ul Abnormal Negative [facility] Comment on above: Order Comment: CLEAN CATCH Performed By: #### L 400.0100, L500.2900, L100.0200 #### [facility] [address] [place], [address] Nitrite Ql (U) Negative Normal Negative [facility] Comment on above: Order Comment: CLEAN CATCH Performed By: #### L 400.0100, L500.2900, L100.0200 #### [facility] [address] [place], [address] OCCULT BLOOD-UR Negative Normal Negative [facility] Comment on above: Order Comment: CLEAN CATCH Performed By: #### L 400.0100, L500.2900, L100.0200 #### [facility] [address] [place], [address] pH UR 6.0 Normal 5.0 - 8.0 [facility] Comment on above: Order Comment: CLEAN CATCH Performed By: #### L 400.0100, L500.2900, L100.0200 #### [facility] [address] [place], [address] PROT DIPSTX Negative Normal Negative [facility] Comment on above: Order Comment: CLEAN CATCH Performed By: #### L 400.0100, L500.2900, L100.0200 #### [facility] [address] [place], [address] SP.GR. DIPSTX 1.020 Normal 1.002-1.030 [facility] Comment on above: Order Comment: CLEAN CATCH Performed By: #### L 400.0100, L500.2900, L100.0200 #### [facility] [address] [place], [address] UROBILI Normal Normal Normal [facility] Comment on above: Order Comment: CLEAN CATCH Performed By: #### L 400.0100, L500.2900, L100.0200 #### [facility] [address] [place], [address] CNTHERAPYon 04-05-2023 CNTHERAPY OT/PT/Speech Visit (PTWS) SORAYA ZENG ([id number]) 1985 F Date Time Provider Department 04/05/23 10:45 AM DORI MONDRAGON Date Time Provider Department [place] 04/05/2023 10:45 AM [id number] MONDRAGON [place] [facility] Reason for Visit: PT Eval [747] PT Discharge [752] Primary Visit Diagnosis:JAHAIRA (stress urinary incontinence, female) [N39.3] Allergies As of Date: 04/05/2023 (No Known Allergies) Date Reviewed: 03/08/2011 Reviewed by: Ángela Chiang (Lala) - Fully Assessed Prescriptions as of 04/05/2023 - Levonorgestrel-Ethiny l Estrad (AVIANE) 0.1-20 mg-mcg ORAL per tablet Take 1 tablet by mouth once daily. - Vit-Iron Fumarate-FA ( PLUS) 27-1 mg ORAL Tab Take 1 tablet by mouth once daily. [facility] Basophil percentageon 2021 Basophil percentage 0-5 SEEN /hpf 0-5 [facility] Work Phone: Bilirubin Test strip Ql (U)o n 01-15-2022 Bilirubin Ql (U) Negative Negative [facility] Work Phone: Ketones Test strip Ql (U)on 01-15-2022 Ketones Ql (U) Negative Negative [facility] Work Phone: Mucus LM Ql (Urine sed)on Mucus Ql (Urine sed) 0 SEEN /hpf [facility] Work Phone: Nitrite Test strip Ql (U)on 01-15-2022 Nitrite Ql (U) Negative Negative [facility] Work Phone: Protein Test strip Ql (U)on 01-15-2022 Protein Ql (U) Negative Negative [facility] Work Phone: Squamous epithelial cells de tection in urine sediment by light microscopyon 01-15-2022 Epithelial cells.squamous LM Ql (Urine sed) 0 SEEN /hpf 5-10 [facility] Work Phone: Urine blood detectionon 12-23 RBC Ql (U) Negative Negative [facility] Work Phone: RBC Ql (U) 0 SEEN /hpf 0-5 [facility] Work Phone: Urine clarityon 01-15-2022 Clarity (U) Clear Clear [facility] Work Phone: Urine color determinationon 01-15-2022 Color (U) Straw Yellow [facility] Work Phone: Urine glucose detectionon Glucose Ql (U) Normal mg/dl Normal [facility] Work Phone: Urine leukocyte esterase det ection by dipstickon 01-15-2022 Leukocyte esterase Test strip Ql (U) 25 /ul Negative [facility] Work Phone: Urine pHon 01-15-2022 pH (U) 6.0 [pH] 5.0 - 8.0 [facility] Work Phone: Urine sediment bacteria coun t by microscopy (number/high power field)on 01-15-2022 Bacteria LM.HPF (Urine sed) [#/Area] 0 /[HPF] None Seen [facility] Work Phone: Urine specific gravity measu rementon 01-15-2022 Specific gravity (U) [Rel density] 1.010 1.002-1.030 [facility] Work Phone: Urobilinogen Auto test strip Ql (U)on 01-15-2022 Urobilinogen Ql (U) Normal mg/dl Normal [facility] Work Phone: Laboratory - Chemistry and C hemistry - challengeon 01-14-2022 Bilirubin Ql (U) Negative [facility] Work Phone: Glucose Ql (U) Negative [facility] Work Phone: Ketones Ql (U) Trace (5) [facility] Work Phone: pH (U) 5.0 [pH] [facility] Work Phone: Urobilinogen (U) [Mass/Vol] Negative [facility] Work Phone: Laboratory - Hematology and Cell countson 01-14-2022 Hemoglobin Ql (U) Negative [facility] Work Phone: Laboratory - Specimen inform ationon 01-14-2022 Clarity (U) Slightly Hazy [facility] Work Phone: Color (U) STRAW [facility] Work Phone: Laboratory - Urinalysison Nitrite Ql (U) Negative [facility] Work Phone: Protein Ql (U) Negative [facility] Work Phone: No Panel Informationon 01-14 Urine Leukocytes Negatve [facility] Work Phone: Urine Non-Hemolyzed Blood Negative [facility] Work Phone: Office Visit: Spine Visit- R sided low back painon 02-11-2017 Documentation of current medications (procedure) Done Invalid Interpretation Code [facility] Work Phone: Office Visit: Spine Visit- R sided low back painon 01-17-2017 Documentation of current medications (procedure) Done Invalid Interpretation Code [facility] Work Phone: Protein mass conc Done [facility] Work Phone: Office Visit: Spine Visit- R sided low back painon 12-27-2016 Documentation of current medications (procedure) Done Invalid Interpretation Code [facility] Work Phone: Protein mass conc Done [facility] Work Phone: Office Visit: Spine Visit- R sided siatic painon 11-07-2016 Documentation of current medications (procedure) Done Invalid Interpretation Code [facility] Work Phone: Office Visit: Spine Visit- N EWon 10-23-2016 Documentation of current medications (procedure) Done Invalid Interpretation Code [facility] Work Phone: Tobacco smoking status NHIS Never Invalid Interpretation Code [facility] Work Phone: Tobacco smoking status NHIS Never smoker [facility] Work Phone: Tobacco use [facility] Never smoker Invalid Interpretation Code [facility] Work Phone: Culture, urine Bacteria identified Cx Nom (U) Escherichia coli [facility] Work Phone: Vital Signs Date Time Vital Sign Value Performing Clinician Facility 04-20-2025 09:42-0400 Body mass index (BMI) [Ratio] 30.85 kg/m2 Darvin Rodriguez APRN - PAVEL Work Phone: [facility] 04-20-2025 09:42-0400 Body temperature 98.6 [degF] Darvin Rodriguez APRN - SUPERVISOR EDUCATION Work Phone: [facility] 04-20-2025 09:42-0400 Body weight 78.38 kg Darvin Rodriguez APRN - PAVEL Work Phone: [facility] 04-20-2025 09:42-0400 Diastolic blood pressure 72 mm[Hg] Darvin Rodriguez APRN - PAVEL Work Phone: [facility] 04-20-2025 09:42-0400 Heart rate 80 /min Darvin Rodriguze APRN - PAVEL Work Phone: [facility] 04-20-2025 09:42-0400 Respiratory rate 20 /min Darvin Rodriguez APRN - PAVEL Work Phone: [facility] 04-20-2025 09:42-0400 SaO2% (BldA) [Mass fraction] 96 % Darvin Rodriguez APRN - PAVEL Work Phone: [facility] 04-20-2025 09:42-0400 Systolic blood pressure 102 mm[Hg] Darvin Rodriguez APRN - PAVEL Work Phone: [facility] 10-06-2024 13:06-0400 Body height 160.[address] Swathi Bond MD Work Phone: [facility] 10-06-2024 13:06-0400 Body mass index (BMI) [Ratio] 29.5 kg/m2 Dr. Swathi Bond MD Work Phone: [facility] 10-06-2024 13:06-0400 Body weight 75.[address] Swathi Bond MD Work Phone: [facility] 10-06-2024 13:06-0400 Diastolic blood pressure 83 mm[Hg] Dr. Swathi Bond MD Work Phone: [facility] 10-06-2024 13:06-0400 Systolic blood pressure 120 mm[Hg] Dr. Swathi Bond MD Work Phone: [facility] 02-14-2024 09:55-0400 Body height 159.4 cm Swathi Bond MD Work Phone: [facility] 02-14-2024 09:55-0400 Body mass index (BMI) [Ratio] 27.96 kg/m2 Swathi Bond MD Work Phone: [facility] 02-14-2024 09:55-0400 Body weight 71.03 kg Swathi Bond MD Work Phone: [facility] 02-14-2024 09:55-0400 Diastolic blood pressure 88 mm[Hg] Swathi Bond MD Work Phone: [facility] 02-14-2024 09:55-0400 Heart rate 84 /min Swathi Bond MD Work Phone: [facility] 02-14-2024 09:55-0400 SaO2% (BldA) [Mass fraction] 98 % Swathi Bond MD Work Phone: [facility] 02-14-2024 09:55-0400 Systolic blood pressure 125 mm[Hg] Swathi Bond MD Work Phone: [facility] 11-15-2023 09:56-0400 Body height 158.8 cm Swathi Bond MD Work Phone: [facility] 11-15-2023 09:56-0400 Body mass index (BMI) [Ratio] 25.85 kg/m2 Swathi Bond MD Work Phone: [facility] [employer] 11-15-2023 09:56-0400 Body temperature 98.4 [degF] Swathi Bond MD Work Phone: [facility] [employer] 11-15-2023 09:56-0400 Body weight 65.14 kg Swathi Bond MD Work Phone: [facility] 11-15-2023 09:56-0400 Diastolic blood pressure 81 mm[Hg] Swathi Bond MD Work Phone: [facility] 11-15-2023 09:56-0400 Heart rate 79 /min Swathi Bond MD Work Phone: [facility] 11-15-2023 09:56-0400 SaO2% (BldA) [Mass fraction] 98 % Swathi Bond MD Work Phone: [facility] 11-15-2023 09:56-0400 Systolic blood pressure 125 mm[Hg] Swathi Bond MD Work Phone: [facility] 01-14-2022 12:56-0400 Body temperature 98.4 [degF] Dr. Swathi Bond Work Phone: [facility] Work Phone: 01-14-2022 12:56-0400 Diastolic blood pressure 64 mm[Hg] Dr. Swathi Bond Work Phone: [facility] Work Phone: 01-14-2022 12:56-0400 Heart rate 81 /min Dr. Swathi Bond Work Phone: [facility] Work Phone: 01-14-2022 12:56-0400 Respiratory rate 14 /min Dr. Swathi Bond Work Phone: [facility] Work Phone: 01-14-2022 12:56-0400 SaO2% (BldA) [Mass fraction] 99 % Dr. Swathi Bond Work Phone: [facility] Work Phone: 01-14-2022 12:56-0400 Systolic blood pressure 112 mm[Hg] Dr. Swathi Bond Work Phone: [facility] Work Phone: 10-23-2016 10:45-0400 BMI (Body Mass Index) 25.2 kg/m2 Shamika Shepard DC [facility] Work Phone: 10-23-2016 [id number] Body weight 63.5 kg Shamika Shepard DC [facility] Work Phone: 10-23-2016 10:45-0400 BP Diastolic 60 mm[Hg] Shamika Joysi LORAINE [facility] Work Phone: 10-23-2016 10:45-0400 BP Systolic 108 mm[Hg] Shamika Shepard DC [facility] Work Phone: 10-23-2016 10:45-0400 Height 158.75 cm Shamika Shepard DC [facility] Work Phone: 10-23-2016 10:45-0400 Weight 63.5 kg Shamika Shepard DC [facility] Work Phone: Encounters Encounter Date Encounter Type Care Provider Facility Start: 04-20-2025 End: 04-20-2025 ambulatory [facility] NELDA [facility] Start: 04-20-2025 End: 04-20-2025 Patient encounter procedure Darvin Rodriguez SELF SEALING [employer] TANK REPAIRER - SUPERVISOR EDUCATION Work Phone: [facility] [employer] Work Phone: Start: 04-20-2025 End: 04-20-2025 Periodic preventive med est patient 18-39 yrs Darvin Rodriguez SELF SEALING [employer]EL TANK REPAIRER - SUPERVISOR EDUCATION Work Phone: [facility] Comment on above: Annual physical exam (Primary Dx); Obesity (BMI 30.0-34.9); Grieving; Influenza vaccine refused Start: 04-06-2025 End: 04-06-2025 Telephone encounter Swathi Bond MD Work Phone: [facility] Comment on above: Appointment Request (Sooner Physical appt) Start: 03-18-2025 ambulatory Health Risk Assessment Facility:[facility] Start: 10-06-2024 Encounter for gynecological examination (general) (routine) without abnormal findings Becca Win [facility] Start: 10-06-2024 End: 10-06-2024 Patient encounter procedure Becca Audelia DUCT CLEANER-C [facility] Work Phone: Start: 10-06-2024 End: 10-06-2024 Patient encounter status Becca Audelia DUCT CLEANER-C [facility] Start: 10-06-2024 End: 10-06-[address] Swathi Bond MD Work Phone: [facility] Work Phone: Start: 10-06-2024 End: 10-06-2024 ambulatory Becca Win Facility:[facility] Start: 06-02-2024 End: 06-02-2024 ambulatory Swathi Bond Facility:[facility] Start: 05-18-2024 ambulatory Swathi Young Facility :[facility] Start: 02-14-2024 End: 02-14-2024 Office outpatient visit 10 minutes Swathi Bond MD Work Phone: [facility] Comment on above: Bereavement reaction (Primary Dx) Start: 11-15-2023 End: 11-15-2023 Office outpatient visit 15 minutes Swathi Bond MD Work Phone: [facility] Comment on above: Bereavement reaction (Primary Dx); Viral upper respiratory tract infection; Acute cough Start: 04-05-2023 End: 04-05-2023 ambulatory DORI LOPEZ Facility:[facility] Start: 04-05-2023 End: 04-05-2023 ambulatory Dori Lopez PT Work Phone: [facility] Comment on above: JAHAIRA (stress urinary incontinence, female) (Primary Dx) Start: 10-30-[address] RN [facility] Start: 10-30-2022 Patient encounter procedure Norm [address] RN [facility] Start: 10-29-2022 ambulatory Jessi Salomon [facility] Start: 10-29-2022 Patient encounter procedure Jessi Salomon RN [facility] Start: 01-14-2022 End: 01-14-[address] Swathi Bond Work Phone: [facility] Start: 01-14-2022 End: 01-14-[address] Swathi Bond Work Phone: [facility] Start: 12-18-2021 End: 12-18-[address] Swathi Bond Work Phone: [facility] Procedures Date Procedure Procedure Detail Performing Clinician Start: 04-20-2025 Adult depression scr eening assessment Darvin Rodriguez SELF SEALING FUEL TANK REPAIRER - SUPERVISOR EDUCATION Work Phone: Start: 10-06-2024 Microscopic observat ion [Identifier] in Cervix by Cyto stain Swathi Bond MD Work Phone: Start: 02-14-2024 Adult depression scr eening assessment Swathi Bond MD Work Phone: Start: 02-11-2017 End: 02-12-2017 Chiropract manj 1-2 regions Shamika Weber Deepak i DC Work Phone: Start: 01-17-2017 End: 01-17-2017 Chiropract manj 1-2 regions Shamika B Deepak i DC Work Phone: Start: 12-27-2016 End: 12-27-2016 Chiropract manj 1-2 regions Shamika B Deepak i DC Work Phone: Start: 11-07-2016 End: 11-07-2016 Documentation of current medications Shamika Dossi DC Start: 11-07-2016 End: 11-07-2016 Chiropract manj 1-2 regions Shamika B Deepak i DC Work Phone: Start: 10-23-2016 End: 10-23-2016 Chiropract manj 1-2 regions Shamika B Deepak i DC Work Phone: Urine culture Dr. Swathi Carrillo dmer Work Phone: Plan of Treatment Date Care Activity Detail Author Start: 11-11-2062 RSV Immunization for Adults (1 - 1-dose 75+ series) RSV Immunization for Adults (1 - 1-dose 75+ series) [facility] Start: 2047 RSV Immunization age d 60 or older (1 - 1-dose 60+ series) RSV Immunization aged 60 or older (1 - 1-dose 60+ series) [facility] Start: 11-11-2037 Zoster Vaccines (1 o f 2) Zoster Vaccines (1 of 2) [facility] Start: 10-07-2027 Screening for malign ant neoplasm of cervix [facility] Start: 04-20-2026 Depression Screening Depression Scre ening [facility] Start: 04-12-2026 End: 04-12-2026 Patient encounter procedure 04/12/2026 9:20 AM EDT Office Visit [facility] [address] [place] [address] Marie Cheek APRN - SUPERVISOR EDUCATION [address] [place] [address] [facility] Start: 12-21-2025 Influenza vaccination Influenza Vacc ine (#1) [facility] Comment on above: Postponed from 02/22 (Patient Refused) Start: 06-30-2025 End: 06-30-2025 Patient encounter procedure 06/30/2025 1:15 PM EST Office Visit [facility] [address] [place] [address] Swathi Bond MD [address] [place] [address] [facility] Start: 02-22-2025 COVID-19 Vaccine ( season) COVID-19 Vaccine ( season) [facility] Start: 02-22-2025 Influenza vaccination Influenza Vacc ine (#1) [facility] Start: 02-13-2025 Depression Screening Depression Scre ening [facility] Start: 03-13-2024 DTaP/Tdap/Td Vaccine s (2 - Td or Tdap) DTaP/Tdap/Td Vaccines (2 - Td or Tdap) [facility] Start: 02-23-2024 Influenza vaccination S [facility] Start: 02-14-2024 End: 02-14-2024 Patient encounter procedure 02/14/2024 10:00 AM EDT Office Visit [facility] [address] [facility] [place] [address] Swathi Bond MD [address] [place] [address] [place] [address] [facility] Start: 02-22-2023 Covid-19 Vaccine () Covid-19 Vaccine ( season) [facility] Start: 02-22-2023 Influenza vaccination Influenza Vacc ine (#1) [facility] Start: 06-24-2022 Depression Assessment Depression Ass essment [facility] Start: 10-04-2020 COVID-19 Vaccine (3 - Booster for Moderna series) COVID-19 Vaccine (3 - Booster for Moderna series) [facility] Start: 11-11-2017 HPV Testing HPV Testing [facility] Start: 11-11-2017 Screening for malign ant neoplasm of cervix [facility] Start: 01-17-2017 End: 01-17-2017 Appointment Appointment [facility] Work Phone: Start: 12-27-2016 End: 12-27-2016 Appointment Appointment [facility] Work Phone: Start: 11-07-2016 End: 11-07-2016 Appointment Appointment [facility] Work Phone: Start: 10-23-2016 End: 10-23-2016 Appointment Appointment [facility] Work Phone: Start: 03-08-2016 Pap Testing Pap Testing [facility] Start: 11-11-2008 Screening for malign ant neoplasm of cervix Pap Smear [facility] Start: 11-11-2006 Hepatitis B Vaccines (1 of 3 - 19+ 3-dose series) Hepatitis B Vaccines (1 of 3 - 19+ 3-dose series) [facility] Start: 11-11-2006 Urine microalbumin profile DTaP,Tdap,Td Vaccine (1 - Tdap) [facility] Start: 11-11-2005 Hepatitis C screening Hepatitis C [facility] Start: 11-11-2005 Hepatitis C Screening Hepatitis C [facility] Start: 11-11-2005 HIV Screening HIV Screening [facility] Start: 11-11-2000 Varicella vaccination Varicell a Vaccines (1 of 2 - 13+ 2-dose series) [facility] Start: 1999 Depression Screening Depression Scre ening [facility] Start: 11-11-1988 MMR Vaccines (1 of 1 - Standard series) MMR Vaccines (1 of 1 - Standard series) [facility] Start: 11-11-1988 Varicella vaccination Varicell a Vaccines (1 of 2 - 2-dose childhood series) [facility] Start: 1987 Hepatitis B Vaccine (1 of 3 - 3-dose series) Hepatitis B Vaccine (1 of 3 - 3-dose series) [facility] Start: 1987 Hepatitis B Vaccines (1 of 3 - 3-dose series) Hepatitis B Vaccines (1 of 3 - 3-dose series) [facility] Start: 1987 HIV screening HIV Screening [facility] Work Phone: Immunizations Immunization Date Immunization Notes Care Provider [facility] 05-10-2022 influenza, injectabl e, quadrivalent, preservative free Dr. Swathi Bond MD Work Phone: [facility] 05-10-2022 influenza, seasonal, injectable Norm Way RN [facility] 05-10-2022 influenza virus vaccine, unspecified formulation Dori Lopez PT Work Phone: [facility] 04-05-2021 influenza, injectabl e, quadrivalent, preservative free Dr. Swathi Bond MD Work Phone: [facility] 04-05-2021 influenza, seasonal, injectable Dr. Swathi Bond Work Phone: [facility] Work Phone: 04-05-2021 influenza, seasonal, injectable, preservative free Norm Way RN [facility] 04-04-2021 influenza virus vaccine, unspecified formulation [address] RN [facility] 08-09-2020 Covid ([facility]) Dr. Swathi Bond Work Phone: [facility] 07-12-2020 Jonasid ([facility]) Dr. Swathi Bond Work Phone: [facility] 04-03-2020 influenza, injectabl e, quadrivalent, preservative free Dr. Swathi Bond MD Work Phone: [facility] 04-03-2020 influenza, seasonal, injectable Dr. Swathi Bond Work Phone: [facility] Work Phone: 04-18-2019 influenza, injectabl e, quadrivalent, preservative free Dr. Swathi Bond MD Work Phone: [facility] 04-18-2019 influenza, seasonal, injectable Dr. Swathi Bond Work Phone: [facility] Work Phone: 04-18-2019 influenza, seasonal, injectable, preservative free Norm Way RN [facility] 03-30-2018 influenza, injectabl e, quadrivalent, preservative free Dr. Swathi Bond MD Work Phone: [facility] 03-30-2018 influenza, seasonal, injectable Dr. Swathi Bond Work Phone: [facility] Work Phone: 03-30-2018 influenza, seasonal, injectable, preservative free Norm [address] RN [facility] 05-10-2017 influenza, injectabl e, quadrivalent, preservative free Dr. Swathi Bond MD Work Phone: [facility] 05-10-2017 influenza, seasonal, injectable Dr. Swathi Bond Work Phone: [facility] Work Phone: 05-10-2017 influenza, seasonal, injectable, preservative free Norm Way RN [facility] 04-03-2016 influenza, injectabl e, quadrivalent, preservative free Dr. Swathi Bond MD Work Phone: [facility] 04-03-2016 influenza, seasonal, injectable Dr. Swathi Bond Work Phone: [facility] Work Phone: 04-03-2016 influenza, seasonal, injectable, preservative free Norm [address] RN [facility] 03-10-2015 influenza, injectabl e, quadrivalent, preservative free Dr. Swathi Bond MD Work Phone: [facility] 03-10-2015 influenza, seasonal, injectable Dr. Swathi Bond Work Phone: [facility] Work Phone: 03-24-2014 influenza, injectabl e, quadrivalent, preservative free Dr. Swathi Bond MD Work Phone: [facility] 03-24-2014 influenza, seasonal, injectable Dr. Swathi Bond Work Phone: [facility] Work Phone: 03-24-2014 influenza, seasonal, injectable, preservative free Norm Way RN [facility] 03-13-2014 tetanus toxoid, redu sandra diphtheria toxoid, and acellular pertussis vaccine, adsorbed Norm Way RN [facility] 07-02-[address] Swathi Bond Work Phone: [facility] 07-02-2013 influenza, seasonal, injectable Norm [address] RN [facility] 07-02-2013 influenza, seasonal, injectable, preservative free Norm [address] RN [facility] 04-23-[address] Swathi Bond Work Phone: [facility] 04-23-2013 influenza, seasonal, injectable Norm [address] RN [facility] 04-23-2013 influenza, seasonal, injectable, preservative free Norm [address] RN [facility] Payers Date Payer Category Payer Self-pay [id number] 2023 Commercial Managed C are - HMO AET[employer]NE HAQUE [id number] 2023 Private Health Insurance [employer] Cristal CALLYANNE SHABNAM [id number] 2023-Present [address] [place] [id number] Commercial [id number] 2023 Unknown [id number] 2022 Unknown [id number] 2022 Unknown [id number] Unknown [facility] [id number] Unknown [facility] [id number] Unknown [id number] Unknown [id number] Unknown [id number] Unknown [id number] Unknown [id number] Social History Date Type Detail Facility Start: 01-14-2022 Tobacco smoking stat us NHIS Unknown if ever smoked [facility] Work Phone: Start: 1985 Sex Assigned At Female [facility] Start: 03-08-2011 End: 10-06-2024 Tobacco smoking status NHIS Never smoked tobacco [facility] Start: 04-19-2022 End: 02-14-2024 Alcohol intake Current non-drinker of alcohol (finding) [facility] Start: 1985 Sex Assigned At Not on file [facility] Start: 10-20-2022 End: 10-30-2022 Exposure to SARS-CoV-2 (event) Not sure [facility] Start: 03-08-2011 Tobacco use and exposure Smoke less tobacco non-user [facility] Work Phone: Start: 02-07-2022 End: 04-20-2025 [facility] Start: 02-07-2022 End: 04-20-2025 Tobacco use panel [facility] Start: 01-22-2022 End: 10-09-2024 Sex Female (finding) [facility] Start: 04-20-2025 Alcoholic beverage intake Curr ent drinker of alcohol (finding) [facility] How often do you nee d to have someone help you when you read instructions, pamphlets, or other written material from your doctor or pharmacy [SILS] Never [facility] Has the [employer], [employer], [employer], or water [employer] threatened to shut off services in your home in past 12Mo No [facility] Do you belong to any clubs or organizations such as shinto groups, unions, fraternal or athletic groups, or school groups? Yes [facility] Are you now , , , , never or living with a partner? [facility] How often to you hav e a drink containing alcohol? Monthly or less [facility] How many standard dr inks containing alcohol do you have on a typical day? 1 or 2 [facility] How hard is it for y ou to pay for the very basics like food, housing, medical care, and heating Not hard at all [facility] Do you feel stress - tense, restless, nervous, or anxious, or unable to sleep at night because your mind is troubled all the time - these days [OSQ] To some extent [facility] (I/We) worried wheth er (my/our) food would run out before (I/we) got money to buy more. Never true [facility] Start: 04-20-2025 Alcohol Comment One a month [facility] Goals Date Patient Goal Desired Activity /State Functional Status Date Assessment Result Facility 04-20-2025 Total score [AUDIT-C] 1 04/20/20 8:45 AM EDT Darvin Rodriguez APRN - CNP [facility] 04-20-2025 How often to you hav e a drink containing alcohol? Monthly or less 04/20/2025 8:45 AM LOT Darvin Rodriguez APRN - CNP Monthly or less [facility] 04-20-[address] inks containing alcohol do you have on a typical day? 1 or 2 04/20/2025 8:45 AM Darvin Reyes APRN - CNP 1 or 2 [facility] 04-20-2025 How often do you hav e 6 or more drinks on 1 occasion? Never 04/20/2025 8:45 AM EDT Darvin Rodriguez APRN - CNP Never [facility] 04-20-2025 Patient Health Quest ionnaire 2 item (PHQ-2) [Reported] [facility] 04-20-2025 Little interest or p rigo in doing things Not at all 04/20/2025 8:45 AM Darvin Reyes APRN - CNP Not at all [facility] 04-20-2025 Feeling down, depres sed, or hopeless Not at all 04/20/2025 8:45 AM EDT Darvin Rodriguez APRN - CNP Not at all [facility] Clinical Notes 10-29-2022 to 04-20-2025 Lolis Lo - 04/20/2025 9:20 AM EDKAL Decker CNP - 04/20/2025 9:20 AM EDTTelephone Encounter - Gemma Mills - 04/06/2025 12:47 PM EDT Note Date & Type Note Facility 04-20-2025 History of Presen t illness Narrative Patient was identified by name and Date of . Health Maintenance Due Topic HIV Screening-declined MMR Vaccines-declined Varicella Vaccines-declined Hepatitis C Screening-declined Hepatitis B Vaccines-declined DTaP/Tdap/Td Vaccines-declined Depression Screening-completed Influenza Vaccine-declined COVID-19 Vaccine-declined Images from the original note were not included. 04/20/2025 Soraya Zeng (: 1985) is a 39 y.o. female , Established patient, here for evaluation of the following chief complaint(s): Annual Exam and Health Maintenance (HIV Screening-declined/MMR Vaccines-declined/Varicella Vaccines-declined/Hepatitis C Screening-declined/Hepatitis B Vaccines-declined/DTaP/Tdap/Td Vaccines-declined/Depression Screening-completed/Influenza Vaccine-declined/COVID-19 Vaccine-declined/) ASSESSMENT/PLAN: 1. Annual physical exam 2. Obesity (BMI 30.0-34.9) 3. Grieving 4. Influenza vaccine refused Patient here for physical exam. No acute concerns today. Chronic, uncontrolled. Patient gained 25 pounds in the last year. Discussed diet and exercise. Patient plans on getting a student success coach at her gym. Will continue to monitor. Patient still grieving loss of last year. She is going through counseling. Will continue to monitor. Patient denies vaccine at this time. Follow up for AWV in 1 year. SUBJECTIVE/OBJECTIVE: HPI - Soraya Zeng (: 1985) is a 39 y.o. female , Established patient, here for the evaluation of the following chief complaint(s): Annual Exam and Health Maintenance (HIV Screening-declined/MMR Vaccines-declined/Varicella Vaccines-declined/Hepatitis C Screening-declined/Hepatitis B Vaccines-declined/DTaP/Tdap/Td Vaccines-declined/Depression Screening-completed/Influenza Vaccine-declined/COVID-19 Vaccine-declined/) Patient is here for annual physical exam. She had labs drawn earlier this month at [facility] for work. 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 CMP and Lipid panel were normal. Patient lives at home with her three children. Her last tear. She denies being depressed or anxious, just going through the normal grieving process. States she has a lot of support through her shinto, family, friends. She goes to counseling [place] [facility] [place] [facility] Britton is her counselor. Patient goes to the gym twice a week. She has gained 25 pounds since her last October. She stress eats when she gets sad or misses him. Patient follows with [employer] for her pap smears and she is up to date. They recently took out an IUD she had. Patient denies any concerns today. Current Medications[1] Review of Systems Constitutional: Negative. HENT: Negative. Eyes: Negative. Respiratory: Negative. Cardiovascular: Negative. Gastrointestinal: Negative. Genitourinary: Negative. Musculoskeletal: Negative. Skin: Negative. Neurological: Negative. Psychiatric/Behavioral: Still grieving lost . Vitals: 04/20/25 0942 BP: 102/72 Pulse: 80 Resp: 20 Temp: 37 C (98.6 F) TempSrc: Infrared SpO2: 96% Weight: 172 lb 12.8 oz (78.4 kg) Physical Exam Vitals reviewed. Constitutional: General: She is not in acute distress. Appearance: She is obese. She is not ill-appearing. HENT: Head: Normocephalic and atraumatic. Right Ear: Tympanic membrane, ear canal and external ear normal. Left Ear: Tympanic membrane, ear canal and external ear normal. Nose: Nose normal. Mouth/Throat: Mouth: Mucous membranes are moist. Pharynx: Oropharynx is clear. Eyes: Extraocular Movements: Extraocular movements intact. Conjunctiva/sclera: Conjunctivae normal. Pupils: Pupils are equal, round, and reactive to light. Cardiovascular: Rate and Rhythm: Normal rate and regular rhythm. Pulses: Normal pulses. Heart sounds: Normal heart sounds. Pulmonary: Effort: Pulmonary effort is normal. Breath sounds: Normal breath sounds. Abdominal: General: Abdomen is flat. Bowel sounds are normal. Palpations: Abdomen is soft. Musculoskeletal: General: Normal range of motion. Cervical back: Neck supple. Lymphadenopathy: Cervical: No cervical adenopathy. Skin: General: Skin is warm and dry. Capillary Refill: Capillary refill takes less than 2 seconds. Neurological: General: No focal deficit present. Mental Status: She is alert and oriented to person, place, and time. Mental status is at baseline. Psychiatric: Mood and Affect: Mood normal. Behavior: Behavior normal. An electronic signature was used to authenticate this note. KAL Leonard CNP 04/20/2025 1:32 PM [1] No current outpatient medications on file. No current facility-administered medications for this visit. documented in this encounter [facility] 04-06-2025 Telephone encounter Note Form atting of this note might be different from the original. Name of Caller: Soraya Zeng Contact Reason for Appointment: Physical needed prior to 05/23/2025 for insurance, patient scheduled for 06/30/2024 the next available. Office Name: [facility] Medication Refills need, if any: NA Medication Name: NA [facility] 04-06-2025 Miscellaneous Notes Formattin g of this note might be different from the original. Name of Caller: Soraya Zeng Contact Reason for Appointment: Physical needed prior to 05/23/2025 for insurance, patient scheduled for 06/30/2024 the next available. Office Name: [facility] Medication Refills need, if any: NA Medication Name: NA documented in this encounter [facility] 10-06-2024 Note [facility] Pap Smear Specimen Adequacy October 06, 2024 11:59pm Comment . Satisfactory for evaluation. Endocervical and/or squamous metaplasticcells (endocervical component) are present. Comment on above: Satisfactory for ana cristina luation. Endocervical and/or squamous metaplasticcells (endocervical component) are present. 10-06-2024 Evaluation note Diagnosis Onset Date Resolution Encounter for IUD removal acute October 06, 2024 1:04pm Encounter for routine gynecological examination noneactive October 06, 2024 1:04pm [facility] Work Phone: [phone]) 159-972108-23-2024 Evaluation + Plan note* Assessment & Plan Note - Swathi Bond MD - 02/14/2024 10:32 AM EDTAssociated Problem(s): Bereavement reaction Doing very well, is returning to work her children are back in school [id number] Miscellaneous Notes* Assessment & Plan Note - Swathi Bond MD - 02/14/2024 10:32 AM EDTAssociated Problem(s): Bereavement reaction Doing very well, is returning to work her children are back in school documented in this [facility]08-23-2024 History of Present illness Narrative* Bibiana Delgadillo MA - 02/14/2024 10:00 AM EDT Patient verified by last name and date of . * Swathi Bond MD - 02/14/2024 10:00 AM EDT Images from the original note were not included. 02/14/2024 Soraya Zeng (: 1985) is a 38 y.o. female , Established patient, here for evaluation of the following chief complaint(s): Follow-up (Ready to return to work ) ASSESSMENT/PLAN: 1. Bereavement reaction Assessment & Plan: Doing very well, is returning to work her children are back in school Follow up if symptoms worsen or fail to improve. SUBJECTIVE/OBJECTIVE: HPI Thai comes in today for follow-up on her debridement reaction, she says she is actually doing very well, her about 4 months ago and she has spent the summer with her children and now she is going back to work 2 days a week instead of 3 and she has been back to work for 1 day and has done well. She very freely talks about her situation and has a very good support system with her friends and family and she currently is on no medications. Review of Systems Constitutional: Negative for chills and fever. Respiratory: Negative for shortness of breath. Cardiovascular: Negative for chest pain and palpitations. Gastrointestinal: Negative for abdominal pain, constipation and diarrhea. Genitourinary: Negative for dysuria, frequency and urgency. Psychiatric/Behavioral: Negative for dysphoric mood and sleep disturbance. The patient is not nervous/anxious. Vitals: 02/14/24 0955 BP: 125/88 Pulse: 84 SpO2: 98% Weight: 156 lb 9.6 oz (71 kg) Height: 5' 2.75" (1.594 m) Physical Exam Vitals and nursing note reviewed. Constitutional: General: She is not in acute distress. Appearance: Normal appearance. HENT: Head: Normocephalic and atraumatic. Mouth/Throat: Mouth: Mucous membranes are moist. Pharynx: Oropharynx is clear. Eyes: Extraocular Movements: Extraocular movements intact. Pupils: Pupils are equal, round, and reactive to light. Cardiovascular: Rate and Rhythm: Normal rate and regular rhythm. Heart sounds: Normal heart sounds. No murmur heard. Pulmonary: Effort: Pulmonary effort is normal. Breath sounds: Normal breath sounds. Abdominal: General: Abdomen is flat. Bowel sounds are normal. Palpations: Abdomen is soft. Tenderness: There is no abdominal tenderness. Musculoskeletal: Cervical back: Neck supple. Lymphadenopathy: Cervical: No cervical adenopathy. Neurological: Mental Status: She is alert. Psychiatric: Mood and Affect: Mood normal. Behavior: Behavior normal. Thought Content: Thought content normal. Judgment: Judgment normal. An electronic signature was used to authenticate this note. Swathi Bond MD 02/14/2024 10:32 AM documented in this [facility]05-24-2024 Evaluation + Plan note* Assessment & Plan Note - Swathi Bond MD - 11/15/2023 11:01 AM EDT Associated Problem(s): Bereavement reaction Will have her take some time off from work to spend with her young children so that they can all get through this time of bereavement together. [facility] [id number] Miscellaneous Notes* Assessment & Plan Note - Swathi Bond MD - 11/15/2023 11:01 AM EDTAssociated Problem(s): Bereavement reaction Will have her take some time off from work to spend with her young children so that they can all get through this time of bereavement together. * Assessment & Plan Note - Swathi Bond MD - 11/15/2023 11:00 AM EDT Associated Problem(s): Viral upper respiratory tract infection Mucinex DM, salt water gargles or Listerine gargles * Assessment & Plan Note - Swathi Bond MD - 11/15/2023 10:59 AM EDT Associated Problem(s): Cough She is to get some Mucinex DM and take that twice a day increase her fluids salt water or Listerinegargles. * Addendum Note - Swathi Bond MD - 11/15/2023 9:45 AM EDTAddended by: SWATHI BOND on: 11/20/2023 09:01 AM Modules accepted: Level of Service documented in this [facility]05-24-2024 Evaluation + Plan note* Assessment & Plan Note - Swathi Bond MD - 11/15/2023 11:00 AM EDT Associated Problem(s): Viral upper respiratory tract infection Mucinex DM, salt water gargles or Listerine gargles [id number] Evaluation + Plan note* Assessment & Plan Note - Swathi Bond MD - 11/15/2023 10:59 AM EDTAssociated Problem(s): Cough She is to get some Mucinex DM and take that twice a day increase her fluids salt water or Listerinegargles. [facility] [id number] History of Present illness Narrative* Swathi Bond MD - 11/15/2023 9:45 AM EDT Images from the original note were not included. Thank you 11/15/2023 Soraya Zeng (: 1985) is a 38 y.o. female , Established patient, here for evaluation of the following chief complaint(s): Forms/questionnaires (Discuss FMLA), Sore Throat, and Cough (Bring up green/yellow and hurts to bring it up) ASSESSMENT/PLAN: 1. Bereavement reaction Assessment & Plan: Will have her take some time off from work to spend with her young children so that they can all get through this time of bereavement together. 2. Viral upper respiratory tract infection Assessment & Plan: Mucinex DM, salt water gargles or Listerine gargles 3. Acute cough Assessment & Plan: She is to get some Mucinex DM and take that twice a day increase her fluids salt water or Listerinegargles. Follow up in about 3 months (around 02/15/2024). SUBJECTIVE/OBJECTIVE: HPI -Soraya comes in today for a couple of issues 1 is bereavement, she recently lost her to a motorcycle accident and she seems to be adjusting fairly well, she does become somewhat emotional during the interview but definitely does not seem to be depressed at this time. She is wanting to have FMLA papers filled out so she can take some time off for bereavement and to help with her mental health and to spend time with her kids. She currently has a cough that is nonproductive she has no wheezing or shortness of breath she doeshave a little bit of a scratchiness in her throat. She denies any fevers or chills. Review of Systems Constitutional: Negative for chills and fever. Respiratory: Positive for cough. Negative for shortness of breath. Cardiovascular: Negative for chest pain and palpitations. Gastrointestinal: Negative for abdominal pain, blood in stool, constipation and diarrhea. Genitourinary: Negative for dysuria, frequency, hematuria and urgency. Neurological: Negative for weakness and numbness. Psychiatric/Behavioral: Negative for dysphoric mood. The patient is nervous/anxious. Vitals: 11/15/23 0956 BP: 125/81 Pulse: 79 Temp: 36.9 C (98.4 F) SpO2: 98% Weight: 143 lb 9.6 oz (65.1 kg) Height: 5' 2.5" (1.588 m) Physical Exam Vitals and nursing note reviewed. Constitutional: General: She is not in acute distress. Appearance: Normal appearance. HENT: Head: Normocephalic. Right Ear: Tympanic membrane, ear canal and external ear normal. Left Ear: Tympanic membrane, ear canal and external ear normal. Mouth/Throat: Mouth: Mucous membranes are moist. Pharynx: Oropharynx is clear. Eyes: Extraocular Movements: Extraocular movements intact. Pupils: Pupils are equal, round, and reactive to light. Neck: Thyroid: No thyromegaly. Cardiovascular: Rate and Rhythm: Normal rate and regular rhythm. Heart sounds: Normal heart sounds. No murmur heard. Pulmonary: Effort: Pulmonary effort is normal. Breath sounds: Normal breath sounds. Abdominal: General: Bowel sounds are normal. Palpations: Abdomen is soft. Musculoskeletal: General: Normal range of motion. Cervical back: Normal range of motion. Lymphadenopathy: Cervical: No cervical adenopathy. Skin: General: Skin is warm and dry. Neurological: General: No focal deficit present. Mental Status: She is alert and oriented to person, place, and time. Psychiatric: Attention and Perception: Attention normal. Mood and Affect: Mood is anxious. Mood is not depressed. Speech: Speech normal. Behavior: Behavior normal. Behavior is cooperative. An electronic signature was used to authenticate this note. Swathi Bond MD 11/20/2023 9:01 AM documented in this [facility]05-24-2024 Note* Addendum Note - Swathi Bond MD - 11/15/2023 9:45 AM EDTAddended by: SWATHI BOND on: 11/20/2023 09:01 AM Modules accepted: Level of Service [id number] NoteHNO ID: [id number] Author: Dori Mondragon, PT Service: ? Author Type: Physical Therapist Type: Progress Notes Filed: 04/05/2023 11:36 AM Note Text: Episode Visit Count: 1 Therapist That Will Accept/Oversee The Plan Of Care: Dori Lopez Start of Care Date: 04/05/23 Onset Date: 03/04/17 Patient Identified by Name and Date of : Yes REHABILITATION AND SPORTS THERAPY PHYSICAL THERAPY EVALUATION PLAN OF CARE: Assessment: Soraya Zeng presents with chief complaint of urinary frequency while exercising after drinking coffee that interferes with nothing . She presents with no physical impairments, exhibits good strength, ROM, flexibility, and mm coordination. PROMIS? (Patient-Reported Outcomes Measurement Information System) scores were reviewed and physical function domain and self efficacy domain identified as within normal limits. Prognosis for therapy is Excellent due to: current objective clinical presentation, good overall health status . She will benefit from performing HEP on her own at home while maintaining current exercise regimen. Patient will not benefit from further skilled physical therapy services at this time. Patient is discharged from physical therapy. Goals for Episode of Care: created on 04/05/23 through 04/05/23 [facility] in home exercise program.-MET Patient Goals: "make sure everything is okay" Planned Interventions, Frequency, and Duration: Current Frequency: Discontinue Therapy Services Planned Treatment Interventions: Therapeutic exercise (21843), Self-shelter management (63926) PLAN FOR NEXT VISIT: Pt to continue on her own at home. Patient demonstrates good understanding of plan of care and treatment. The above goals and plan of care were discussed and agreed upon by patient/family. SUBJECTIVE: Pt reports having three kids, states she sometimes has urinary frequency while exercising after drinking morning coffee. Pt denies any other bladder or bowel concerns, states she's very active and is not limited in anything. 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 5 points is clinically meaningfully difference Percentiles provide an indication of how the patient's score ranks in relation to the general population. Higher percentile rankings indicate better function/quality of life. 50th percentile is the average of the general population and indicates half of respondents had a worse score. OBJECTIVE MEASURES WITH LEVEL OF FUNCTION: Pelvic Floor Pregnancies: 4 Births: 3 Vaginal Delivery: Standard Pain with penetration: No Urinary/Bowel History : Urinary History, Bowel History Difficulty starting stream: No Incomplete emptying: No Stress Incontinence: No Urgency: No Nocturia (times per night): 0 Daytime Frequency (hours): 2-6 Fluid Intake: Water, Coffee (8 oz measurements) Water : 2-8 Coffee: 1-2 Difficulty evacuating / Excessive Straining: No Incomplete emptying: No Bowel Movement Frequency: 2x/day Fecal incontinence: No Pelvic Floor Muscle Assessment Consent for pelvic assessment/testing and treatment: Patient was educated regarding pelvic floor physical therapy assessment/treatment which may include pelvic floor and girdle muscle assessment externally or internally (vaginal or rectal approach)., Patient verbalized consent for the above treatment approaches today. Patient understands they have control of the treatment and an opportunity to stop treatment at any time. Pelvic Floor Muscle Assessment: PERFECT, Muscle Dynamics Power: 4 Endurance: 5 Fast Reps: 10 Contracton Pressure: Moderate squeeze, felt all the way around finger surface Duration of Contraction: >3 seconds Recruitment of pelvic floor muscles: Coordinated Range of Motion: Normal Ability to Lengthen pelvic floor: Yes Diastasis Rectus Abdominis: Negative Pelvic Floor Manual Assessment Pelvic Floor Tendern (more content not included)...[facility] History of Present illness Narrative* Dori Mondragon, PT - 04/05/2023 10:44 AM EDT Episode Visit Count: 1 Therapist That Will Accept/Oversee The Plan Of Care: Dori Lopez Start of Care Date: 04/05/23 Onset Date: 03/04/17 Patient Identified by Name and Date of : Yes REHABILITATION AND SPORTS THERAPY PHYSICAL THERAPY EVALUATION PLAN OF CARE: Assessment: Soraya Zeng presents with chief complaint of urinary frequency while exercising after drinking coffee that interferes with nothing . She presents with no physical impairments, exhibits good strength, ROM, flexibility, and mm coordination. PROMIS (Patient-Reported Outcomes Measurement Information System) scores were reviewed and physical function domain and self efficacy domain identified as within normal limits. Prognosis for therapy is Excellent due to: current objective clinical presentation, good overall health status . She will benefit from performing HEP on her own at home while maintaining current exercise regimen. Patient will not benefit from further skilled physical therapy services at this time. Patient is discharged from physical therapy. Goals for Episode of Care: created on 04/05/23 through 04/05/23 [place] in home exercise program.-MET Patient Goals: "make sure everything is okay" Planned Interventions, Frequency, and Duration: Current Frequency: Discontinue Therapy Services Planned Treatment Interventions: Therapeutic exercise (47257), Self-shelter management (78580) PLAN FOR NEXT VISIT: Pt to continue on her own at home. Patient demonstrates good understanding of plan of care and treatment. The above goals and plan of care were discussed and agreed upon by patient/family. SUBJECTIVE: Pt reports having three kids, states she sometimes has urinary frequency while exercising after drinking morning coffee. Pt denies any other bladder or bowel concerns, states she's very active and isnot limited in anything. 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 5 points is clinically meaningfully difference Percentiles provide an indication of how the patient's score ranks in relation to the general population. Higher percentile rankings indicate better function/quality of life. 50th percentile is the average of the general population and indicates half of respondents had a worse score. OBJECTIVE MEASURES WITH LEVEL OF FUNCTION: Pelvic Floor Pregnancies: 4 Births: 3 Vaginal Delivery: Standard Pain with penetration: No Urinary/Bowel History : Urinary History, Bowel History Difficulty starting stream: No Incomplete emptying: No Stress Incontinence: No Urgency: No Nocturia (times per night): 0 Daytime Frequency (hours): 2-6 Fluid Intake: Water, Coffee (8 oz measurements) Water : 2-8 Coffee: 1-2 Difficulty evacuating / Excessive Straining: No Incomplete emptying: No Bowel Movement Frequency: 2x/day Fecal incontinence: No Pelvic Floor Muscle Assessment Consent for pelvic assessment/testing and treatment: Patient was educated regarding pelvic floor physical therapy assessment/treatment which may include pelvic floor and girdle muscle assessment externally or internally (vaginal or rectal approach)., Patient verbalized consent for the above treatment approaches today. Patient understands they have control of the treatment and an opportunity to stop treatment at any time. Pelvic Floor Muscle Assessment: PERFECT, Muscle Dynamics Power: 4 Endurance: 5 Fast Reps: 10 Contracton Pressure: Moderate squeeze, felt all the way around finger surface Duration of Contraction: >3 seconds Recruitment of pelvic floor muscles: Coordinated Range of Motion: Normal Ability to Lengthen pelvic floor: Yes Diastasis Rectus Abdominis: Negative Pelvic Floor Manual Assessment Pelvic Floor Tenderness/Hyperactivity: Tested Vaginally in Tested Vaginally in : Supine/hooklying (No tightness/tenderness noted.) LE AROM R LE AROM: WFL L LE AROM: WFL LE Flexibility Flexibility: Hamstring Flexibility, Hip Adductor, Hip Internal Rotation Flexibility, Hip External Rotation Flexibility R Hamstring Flexibility: WNL L Hamstring Flexibility: WNL R Adductor Flexibility: WNL L Adductor Flexibility: WNL R Hip Internal Rotation Flexibility: WNL L Hip Internal Rotation Flexibility: WNL R Hip External Rotation Flexibility: WNL L Hip External Rotation Flexibility: WNL LE Strength Trunk Strength: Lower Abdominals: 4/5 R LE Strength: 5/5 L LE Strength: 5/5 Education: Education Learning Preferences: Demonstration, Explanation, Performance, Printed Materials Barriers: None Learning/educational needs: Home exercise program, Plan of Care Education Provided: Yes, see treatment interventions for education provided Education Provided To: Patient Education Mode/Type: Demonstration, Explanation/Discussion, Literature/Printed Materials, Performance Response to Education/Teach Back: States/Identifies, Return Demonstration TREATMENT: PT Treatment Interventions: Therapeutic Exercise, Self-Residential Management Evaluation Therapeutic Exercise: 1: *kegal holds, 5sec hold with 5sec rest, 5x5 2: *single leg bridges, 2x5 each 3: *quadruped TA and PF bracing, 2x10 4: *quadruped TA and PF bracing with B knee lift off, 2x10 Skilled Intervention: Patient was educated in proper exercise technique and purpose for exercises. Reviewed and educated patient on additions/changes for home exercise program as above (*). Skilled judgment was used in selection of appropriate interventions. Provided written instruction for home exercise program to facilitate proper performance and compliance. Self-Residential Management: 1: Reviewed pelvic floor anatomy and function with 3D pelvic model 2: Reviewed typical vs dysfunctional bladder health 3: Reviewed bladder irritants, importance of water intake 4: Reviewed importance of bracing TA and PF during functional tasks and gym exercises 5: Reviewed knack technique, bladder emptying techniques, urge suppression techniques in case theseissues are present in the future Skilled Intervention: Skilled judgment in the selection of proper modification for activity of daily living/home management based on clinical presentation, deficits, and needs. Provided written instruction for activities of daily living techniques to facilitate proper performance and compliance. Billing * Evaluation Low Complexity: 1 Unit Therapeutic Exercise Treatment Minutes: 12 Self-Care/Home Management Treatment Minutes: 13 Skilled Treatment Time Minutes (timed and untimed codes): 47 Total Session Time (minutes): 47 Session Start Time : 1044 Session Stop Time : [address] Lopez, PT documented [facility] Telephone encounter Note * Telephone Encounter - KAL Herrera CNP - 10/30/2022 1:23 PM EDT Noted. Agree with disposition. [id number] Miscellaneous Notes* Telephone Encounter - KAL Herrera CNP - 10/30/2022 1:23 PM EDT Noted. Agree with disposition. * Telephone Encounter - Monserrat Méndez MA - 10/30/2022 1:17 PM EDT Scheduled with Jazmin today. * Telephone Encounter - Norm Way RN - 10/30/2022 1:06 PM EDT Reason for Disposition Cough has been present for > 3 weeks Protocols used: Cough - Acute [id number]-[id number] S: Patient calls for ongoing issues with uri type symptoms B: patient was seen a month ago in [facility] and prescribed atb. Patient states still has lingering symptoms A: Patient states productive yellow sputum cough at times. Has some left lower rib pain at times aswell as fatigue. Denies fever or sore throat or earache R: patient appt made per triage protocol. Patient verbalizes understanding of same documented in this encounterSOhio[facility] [id number] Telephone encounter Note* Telephone Encounter - Monserrat Méndez MA - 10/30/2022 1:17 PM EDT Scheduled with Jazmin today. [facility] [id number] Telephone encounter Note* Telephone Encounter - Norm Way RN - 10/30/2022 1:06 PM EDT Reason for Disposition Cough has been present for > 3 weeks Protocols used: Cough - Acute Unukiedqgk-HKIPG-GM S: Patient calls for ongoing issues with uri type symptoms B: patient was seen a month ago in [facility] and prescribed atb. Patient states still has lingering symptoms A: Patient states productive yellow sputum cough at times. Has some left lower rib pain at times aswell as fatigue. Denies fever or sore throat or earache R: patient appt made per triage protocol. Patient verbalizes understanding of same [facility] [id number] Telephone encounter Note* Telephone Encounter - Jessi Salomon RN - 10/29/2022 10:21 AM EDT S: Patient called the clinical access center with complaint of cough and congestion B:Symptoms/Concerns: Congestion A: Caller disconnected prior to speaking with a Nurse Multiple attempts to reach patient unsuccessful . Message left on identified voice message system to return call . R: No Contact call. Patient instructed to call back with worsening symptoms, concerns or questions. Reason for Disposition Message left on identified voicemail Protocols used: No Contact or Duplicate Contact [id number] [facility] [id number] Miscellaneous Notes* Telephone Encounter - Jessi Salomon RN - 10/29/2022 10:21 AM EDT S: Patient called the clinical access center with complaint of cough and congestion B:Symptoms/Concerns: Congestion A: Caller disconnected prior to speaking with a Nurse Multiple attempts to reach patient unsuccessful . Message left on identified voice message system to return call . R: No Contact call. Patient instructed to call back with worsening symptoms, concerns or questions. Reason for Disposition Message left on identified voicemail Protocols used: No Contact or Duplicate Contact [id number] documented in this encounterSCommunity [facility]eral[facility]el[facility] note* Diagnosis Onset Date Resolution Status Segmental and somatic dysfunction of cervical region acute Segmental and somatic dysfunction of lumbar region acute Segmental and somatic dysfunction of thoracic region acute UTI (urinary tract infection) [facility] Work Phone: Evaluation note* Diagnosis JAHAIRA (stress urinary incontinence, female)- Primary Female stress incontinence documented in this encounter [facility]* Diagnosis Bereavement reaction- Primary Bereavement, uncomplicated Viral upper respiratory tract infection Acute upper respiratory infections of unspecified site Acute cough documented in this encounter [facility]* Diagnosis Bereavement reaction- Primary Bereavement, uncomplicated documented in this encounter [facility] note* Diagnosis Bereavement reaction- Primary Bereavement, uncomplicated Viral upper respiratory tract infection Acute upper respiratory infections of unspecified site Acute cough Bereavement reaction- Primary Bereavement, uncomplicated Annual physical exam- Primary Routine general medical examination at a health care facility Obesity (BMI 30.0-34.9) Grieving Adjustment disorder with depressed mood Influenza vaccine refused documented in this encounter [facility] for referral (narrative)No reason for referral information availableKettering Health Work Phone: Chief Complaint and Reason for Visit Chief Complaint ADJUSTMENT Urinary tract infection Reason for Visit Segmental and somati c dysfunction of cervical region Segmental and somatic dysfunction of lumbar region Segmental and somatic dysfunction of thoracic region UTI (urinary tract infection) Chief Complaint Admit Date Annual (SUPPORT ANALYST) October 06, 2024 1:0 4pm Reason for Visit Admit Date Encounter for IUD removal October 06 1:04pm Encounter for routine gynecological exam ination October 06, 2024 1:04pm Advance Directives Advance Directive Response Recorded Date/ Time Living Will No March 03, 2020 1:54pm Power of Medical Delivery Technician No February 1:54pm Summary Purpose Family History Relationship Condition Age at Onset Recorded Date/T jose alfredo grandmother Malignant neoplasm of breast Unknown Additional Source Comments Reason for Visit (unrecogniz ed section and content) Reason Onset Date Comments Cough 10/30/2022 Reason Onset Date Comments Cough 10/29/2022 Reason Comments PT Eval PT Discharge Specialty Diagnoses / Procedures Referred By Contac t Referred To Contact Physical Therapy / PHYSICAL THERAPY Diagnoses Pelvic floor therapy - rerferral scanned into the chart Procedures NEW RS PT PELVIC PAIN/INCONT Raysa Joaquin [address] [address] [place] [address] Julian Mondragona, PT [address] [place] [address] Referral ID Status Reason Start Date Expiration Date V isits Requested Visits Authorized [id number] Authorized 06/24/2022 06/23/2023 25 25 Reason Comments Forms/questionnaires Discuss FMLA Sore Throat Cough Bring up green/yello w and hurts to bring it up Reason Comments Follow-up Ready to return to [facility] Reason Onset Date Comments Appointment Request 04/06/2025 Sooner Physi bhupinder appt Reason Comments Annual Exam Health Maintenance HIV Screening-declin edMMR Vaccines-declinedVaricella Vaccines-declinedHepatitis C Screening-declinedHepatitis B Vaccines-declinedDTaP/Tdap/Td Vaccines-declinedDepression Screening-completedInfluenza [id number] Vaccine-declined Care Teams (unrecognized sec tion and content) Engineering Specialist Relationship Specialty Start Date End Date Swathi Bond MD [address] [place] [id number] PCP - General 02/11/15 Engineering Specialist Relationship Specialty Start Date End Date Swathi Bond MD [address] [place] [id number] PCP - General 02/11/15 Engineering Specialist Relationship Specialty Start Date End Date Swathi Bond MD [address] [place] [id number] PCP - General 02/11/15 Engineering Specialist Relationship Specialty Start Date End Date Swathi Bond MD [address] [facility] [place] [address] PCP - General 02/11/15 Team Status: Active Member Role Status Dates Dr. Swathi Bond MD Primary Care Provider Active Team Status: Inactive Member Role Status Dates Dr. Swathi Bond MD Primary Care Provider Active Start: October 06, 2024 End: October 06, 2024 Dr. Swathi Bond MD Referring Provider Active Start: October 06, 2024 End: October 06, 2024 ESTELA Oliveira Attending Provider Active Start: October 06, 2024 End: October 06, 2024 Team Status: Inactive Member Role Status Dates Dr. Swathi Bond MD Primary Care Provider Active Start: October 06, 2024 End: October 06, 2024 ESTELA Oliveira Attending Provider Active Start: October 06, 2024 End: October 06, 2024 ESTELA Oliveira Referring Provider Active Start: October 06, 2024 End: October 06, 2024 Engineering Specialist Relationship Specialty Start Date End Date Swathi Bond [facility] [place] [address] PCP General 02/11/15 Engineering Specialist Relationship Specialty Start Date End Date Swathi Bond [place] [address] PCP - General 02/11/15 Source Comments (unrecognize d section and content) In the event this informatio n is protected by the Federal Confidentiality of Alcohol and Drug Abuse Patient Records regulations: The Federal rules restrict any use of the information to criminally investigate or prosecute any alcohol or drug abuse patient.[facility] INFORMATION SOURCE (unrecogn ized section and content) DATE CREATED AUTHOR 04/07/2023 [facility] DATE CREATED AUTHOR AUTHOR'S ORGANIZ ATION 03/19/2025 [facility] DATE CREATED AUTHOR AUTHOR'S ORGANIZ ATION 04/22/2025 [facility] FOR RECORDS PERTAINING TO PATIENTS WHO ARE OR HAVE BEEN ENROLLED IN A CHEMICAL DEPENDENCY/SUBSTANCEABUSE PROGRAM, SOME INFORMATION MAY BE OMITTED. This clinical summary was aggregated from multiple sources. Caution should be exercised in using it in the provision of clinical care. This summary normalizes information from multiple sources, and as a consequence, information in this document may materially change the coding, format and clinical context of patient data. In addition, data may be omitted in some cases. CLINICAL DECISIONS SHOULD BE BASED ON THE PRIMARY CLINICAL RECORDS. [facility] [employer] [facility]. provides no warranty or guarantee of the accuracy or completeness of information in this document.
--- NOTE | 2025-06-19 14:15 | RAD_ITS ---
PROCEDURE: FOOT MIN 3 VIEWS 06/19/2025 REASON FOR EXAM: INJURY TECHNIQUE: Procedure Code: RADFO Modality: DX Procedure: FOOT MIN 3 VIEWS Laterality: Left COMPARISON: None available. FINDINGS: Bones: No visible fracture. No suspicious bone lesion. Joints: Normal alignment. Joint spaces preserved. No arthropathic features. Soft tissues: Soft tissues are unremarkable. RAD/Foot min 3 Views IMPRESSION: NO ACUTE FRACTURE OR DISLOCATION. Reading [facility]
--- OUTSIDE RECORDS SUMMARY | 2025-06-19 14:50 | XMS RPT_ITS | CCD ---
Author Organization [facility] Care Team Providers Care Baby Attendant Name Role Phone Shamika Shepard DC Unavailable Dr. Swathi Bond Primary Care Provider Dr. Swathi Bond Referring Provider Dr. Shamika Shepard Attending Provider [phone] LYNEN, [place] Opal Murray Attending Provider Swathi Bond MD Primary Care Provider Unavailable Primary Care Provider UnavailDORI Rome Attending Unavailable Swathi Bond MD Primary Care Provider Dr. Swathi Bond MD Primary Care Provider Dr. Swathi Bond MD Referring Provider Audelia RECRUIT INSTRUCTOR-CBecca Attending Provider Audelia RECRUIT INSTRUCTOR-CBecca Referring Provider Assessment, Health Risk Attending Swathi [...] 06, 2024 12:00am as a single dose [facility] (Nk) (1 source) Start: 01-13-2019 [facility] (Nk) Active January 13, 2019 12:00am Completed/Discontinued [...] days, take 1 pill for 3 days Vit,Ijym84-Fooj-Jlg ic (1 source) Start: 07-27-2015 End: 12-09-2017 take 1 tablet by mouth once daily Vit,Btoy12-Irxg-Nkdx c Discontinued 1 TABLET PO DAILY 0 July 27, 2015 1:00am December 09, 2017 11:06am Vit,Nzyx75-Kktc-Idu ic 1 TABLET tablet (1 source) Start: 07-27-2015 End: 12-09-2017 take 1 tablet by mouth once daily Vit,Kike73-Poih-Ilot c 1 TABLET tablet Discontinued 1 {tbl} [...] TABS 1 daily W/O A VIT-FE FUM-FA [id number] Lanny Richard W/O A VIT-FE FUM-FA (3 sources) Start: 10-23-2016 BP MULTINATAL PLUS 30-1 MG TABS 1 daily W/O A VIT-FE FUM-FA [id number] Lanny Richard Problems Active Problems Problem Classification [...] Range Facility Office Visiton 04-20-2025 Follow-up visit [id number] Dafne Zeng 1985 F Date Provider Department Center 04/20/2025 [id number]-CZZVUDCZDARVIN RODRIGUEZ [facility] Family History Problem Relation Age of Onset No Known Problems Father No Known Problems Mother Family Status - Relation Status Age at Father Alive Mother Alive Level of Service:44293 [place] PERIODIC PREVENTIVE MED EST PATIENT 18-39 YRS Reason for Visit and Comments: Annual Exam [83] Health Maintenance [872] - HIV Screening-declined MMR Vaccines-declined Varicella Vaccines-declined Hepatitis C Screening-declined Hepatitis B Vaccines-declined DTaP/Tdap/Td Vaccines-declined Depression Screening-completed Influenza Vaccine-declined COVID-19 Vaccine-declined [facility] Progress Noteon 04-20-2025 Progress Note [...] and exercise. Patient plans on getting a transition coach at her gym. Will continue to [...] drawn earlier this month at [facility] for work. 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 CMP and Lipid panel were normal. Patient lives at home with her three children. Her last . She denies being depressed or anxious, just going through the normal grieving process. States she has a lot of support through her worship, family, friends. She goes to counseling at [facility] in [facility] Vani Jarquin is her counselor. Patient goes to the gym twice a week. She has gained 25 pounds since her last October. She stress eats when she gets sad or misses him. Patient follows with toll repairer central office for her pap smears and she is [...] No current facility-administered medications for this visit. [facility] Progress Note Patient was identified by name and Date of . Health Maintenance Due Topic HIV Screening-declined MMR Vaccines-declined Varicella Vaccines-declined Hepatitis C Screening-declined Hepatitis B Vaccines-declined DTaP/Tdap/Td Vaccines-declined Depression Screening-completed Influenza Vaccine-declined COVID-19 Vaccine-declined [facility] 36on 04-06-2025 36 Name of Caller: Soraya Zeng Contact Reason for Appointment: Physical needed prior to 05/23/2025 for insurance, patient scheduled for 06/30/2024 the next available. Office Name: Bernard REIS Medication Refills need, if any: NA Medication Name: NA [facility] CBC, Employeeon 03-18-2025 Absolute Lymph 2.65 X10 3/uL Normal 0.83-4.51 [facility] Comment on above: Performed By: #### L 500.2900, L400.0100, L100.0200 #### [facility] [address] [place], [address] Absolute Neut 3.5 X10 3/uL Normal 2.0-7.7 [facility] Comment on above: Performed By: #### L 500.2900, L400.0100, L100.0200 #### [facility] [address] [place], [address] Basophils/100 WBC (Bld) 0.3 % Normal 0-1 [facility] Comment on above: Performed By: #### L 500.2900, L400.0100, L100.0200 #### [facility] [address] [place], [address] Eosinophils/100 WBC (Bld) 1.2 % Normal 0-5 [facility] Comment on above: Performed By: #### L 500.2900, L400.0100, L100.0200 #### [facility] [address] [place], [address] Erythrocyte distribution width (RBC) [Ratio] 11.9 % Normal 11.6-14.6 [facility] Comment on above: Performed By: #### L 500.2900, L400.0100, L100.0200 #### [facility] [address] [place], [address] Hematocrit (Bld) [Volume fraction] 40.6 % Normal 37-47 [facility] Comment on above: Performed By: #### L 500.2900, L400.0100, L100.0200 #### [facility] [address] [place], [address] Hemoglobin (Bld) [Mass/Vol] 14.3 g/dL Normal 12.0-15.0 [facility] Comment on above: Performed By: #### L 500.2900, L400.0100, L100.0200 #### [facility] [address] [place], [address] Lymphocytes/100 WBC (Bld) 39.1 % Normal 19-41 [facility] Comment on above: Performed By: #### L 500.2900, L400.0100, L100.0200 #### [facility] [address] [place], [address] MCH (RBC) [Entitic mass] 29.7 pg Normal 27.0-32.0 [facility] Comment on above: Performed By: #### L 500.2900, L400.0100, L100.0200 #### [facility] [address] [place], [address] MCHC (RBC) [Mass/Vol] 35.2 g/dL Normal 32-36 [facility] Comment on above: Performed By: #### L 500.2900, L400.0100, L100.0200 #### [facility] [address] [place], [address] MCV (RBC) [Entitic vol] 84.2 fL Normal 81-99 [facility] Comment on above: Performed By: #### L 500.2900, L400.0100, L100.0200 #### [facility] [address] [place], [address] Monocytes/100 WBC (Bld) 7.1 % Normal 0-10 [facility] Comment on above: Performed By: #### L 500.2900, L400.0100, L100.0200 #### [facility] [address] [place], [address] Neutrophils/100 WBC (Bld) 52.2 % Normal 47-70 [facility] Comment on above: Performed By: #### L 500.2900, L400.0100, L100.0200 #### [facility] [address] [place], [address] NRBC # 0.00 10 3/uL Normal 0-5 [facility] Comment on above: Performed By: #### L 500.2900, L400.0100, L100.0200 #### [facility] [address] [place], [address] Nucleated RBC (Bld) [#/Vol] 0 10*3/uL Normal 0-5 [facility] Comment on above: Performed By: #### L 500.2900, L400.0100, L100.0200 #### [facility] [address] [place], [address] Platelet mean volume (Bld) [Entitic vol] 10.9 fL Normal 6.2-12.0 [facility] Comment on above: Performed By: #### L 500.2900, L400.0100, L100.0200 #### [facility] [address] [place], [address] Platelets (Bld) [#/Vol] 220 10*3/uL Normal 150-450 [facility] Comment on above: Performed By: #### L 500.2900, L400.0100, L100.0200 #### [facility] [address] [place], [address] RBC (Bld) [#/Vol] 4.82 10*6/uL Normal 4.2-5.4 [facility] Comment on above: Performed By: #### L 500.2900, L400.0100, L100.0200 #### [facility] [address] [place], [address] RDW SD 36.1 fl Normal 35.1-43.9 [facility] Comment on above: Performed By: #### L 500.2900, L400.0100, L100.0200 #### [facility] [address] [place], [address] WBC (Bld) [#/Vol] 6.8 10*3/uL Normal 4.4-11.0 [facility] Comment on above: Performed By: #### L 500.2900, L400.0100, L100.0200 #### [facility] [address] [place], [address] Employee Profileon LDH 178 U/L Normal 84-246 [facility] Comment on above: Performed By: #### L 400.0100, L500.2900, L100.0200 #### [facility] [address] [place], [address] Phosphate [Mass/Vol] 3.4 mg/dL Normal 2.7-4.5 [facility] Comment on above: Performed By: #### L 400.0100, L500.2900, L100.0200 #### [facility] [address] [place], [address] URIC 5.0 mg/dL Normal 2.6-6.0 [facility] Comment on above: Result Comment: The drugs N-Acetylcysteine and Metamizole may falsely depress this assay. Performed By: #### L 400.0100, L500.2900, L100.0200 #### [facility] [address] [place], [address] Urinalysis, Employeeon 03-18 BILIRUBIN URINE Negative Normal Negative [facility] Comment on above: Order Comment: Urine , Random Performed By: #### L 400.0100, L500.2900, L100.0200 #### [facility] [address] [place], [address] Clarity (U) Clear Normal Clear [facility] Comment on above: Order Comment: Urine , Random Performed By: #### L 400.0100, L500.2900, L100.0200 #### [facility] [address] [place], [address] Color (U) Yellow Normal Yellow [facility] Comment on above: Order Comment: Urine , Random Performed By: #### L 400.0100, L500.2900, L100.0200 #### [facility] [address] [place], [address] GLUCOSE, UR Normal Normal Normal [facility] Comment on above: Order Comment: Urine , Random Performed By: #### L 400.0100, L500.2900, L100.0200 #### [facility] [address] [place], [address] KETONE UR Negative Normal Negative [facility] Comment on above: Order Comment: Urine , Random Performed By: #### L 400.0100, L500.2900, L100.0200 #### [facility] [address] [place], [address] LEUK ESTERASE Negative Normal Negative [facility] Comment on above: Order Comment: Urine , Random Performed By: #### L 400.0100, L500.2900, L100.0200 #### [facility] [address] [place], [address] Nitrite Ql (U) Negative Normal Negative [facility] Comment on above: Order Comment: Urine , Random Performed By: #### L 400.0100, L500.2900, L100.0200 #### [facility] [address] [place], [address] OCCULT BLOOD-UR Negative Normal Negative [facility] Comment on above: Order Comment: Urine , Random Performed By: #### L 400.0100, L500.2900, L100.0200 #### [facility] [address] [place], [address] pH UR 6.5 Normal 5.0 - 8.0 [facility] Comment on above: Order Comment: Urine , Random Performed By: #### L 400.0100, L500.2900, L100.0200 #### [facility] [address] [place], [address] PROT DIPSTX Negative Normal Negative [facility] Comment on above: Order Comment: Urine , Random Performed By: #### L 400.0100, L500.2900, L100.0200 #### [facility] [address] [place], [address] SP.GR. DIPSTX 1.010 Normal 1.002-1.030 [facility] Comment on above: Order Comment: Urine , Random Performed By: #### L 400.0100, L500.2900, L100.0200 #### [facility] [address] [place], [address] UROBILI Normal Normal Normal [facility] Comment on above: Order Comment: Urine , Random Performed By: #### L 400.0100, L500.2900, L100.0200 #### [facility] [address] [place], [address] PAP IG HPV APTIMA 16/18,45on 10-09-2024 ADEQ Comment Normal . [facility] Comment on above: Order Comment: Speci men Comment: [id number] Comment: Source.............Cervix;EndocervixSpecimen Comment: No. of containers..01 ThinPrep Vial Result Comment: Sati sfactory for evaluation. Endocervical and/or squamous metaplastic cells (endocervical component) are present. Performed By: #### L 400.0100, L500.2900, L100.0200 #### [facility] [address] [place], [address] COMM . Normal . [facility] Comment on above: Order Comment: Speci men Comment: [id number] Comment: Source.............Cervix;EndocervixSpecimen Comment: No. of containers..01 ThinPrep Vial Performed By: #### L 400.0100, L500.2900, L100.0200 #### [facility] [address] [place], [place], [address] COMMENT Comment Normal . [facility] Comment on above: Order Comment: Speci men Comment: [id number] Comment: Source.............Cervix;EndocervixSpecimen Comment: No. of containers..01 ThinPrep Vial Result Comment: This liquid based ThinPrep(R) pap test was screened with the use of an image guided system. Performed By: #### L 400.0100, L500.2900, L100.0200 #### [facility] [address] [place], [place], [address] DIAG Comment Normal . [facility] Comment on above: Order Comment: Speci men Comment: [id number] Comment: Source.............Cervix;EndocervixSpecimen Comment: No. of containers..01 ThinPrep Vial Result Comment: NEGA TIVE FOR INTRAEPITHELIAL LESION OR MALIGNANCY. Performed By: #### L 400.0100, L500.2900, L100.0200 #### [facility] [address] [place], [place], [address] HPV APTIMA, HR Negative Normal Negative [facility] Comment on above: Order Comment: Speci men Comment: [id number] Comment: Source.............Cervix;EndocervixSpecimen Comment: No. of containers..01 ThinPrep Vial Result Comment: This nucleic acid amplification test detects fourteen high- risk HPV types (16,18,31,33,35,39,45,51,52,56,58,59,66,68) without differentiation. Performed By: #### L 400.0100, L500.2900, L100.0200 #### [facility] [address] [place], [place], [address] HPV Lisa Rfx Comment Normal . [facility] Comment on above: Order Comment: Speci men Comment: [id number] Comment: Source.............Cervix;EndocervixSpecimen Comment: No. of containers..01 ThinPrep Vial Result Comment: Crit eria not met, HPV Genotype not performed. Performed at: [facility] [address] [place], [place] [id number] Naval Marine Engineer: Srikanth Maldonado MD, Phone: [phone] Performed at: - [address] [id number] Naval Marine Engineer: Margret Martinez MD, Phone: [phone] Performed at: = - [facility] [id number] Naval Marine Engineer: Margret Martinez MD, Phone: [phone] Performed By: #### L 400.0100, L500.2900, L100.0200 #### [facility] [address] [place], [place], [address] PAPSMR Comment Normal . [facility] Comment on above: Order Comment: Speci men Comment: [id number] Comment: Source.............Cervix;EndocervixSpecimen Comment: No. of containers..01 ThinPrep [...] By: #### L 400.0100, L500.2900, L100.0200 #### [facility] [address] [place], [place], [address] PERFORM Comment Normal . [facility] Comment on above: Order Comment: Speci men Comment: [id number] Comment: Source.............Cervix;EndocervixSpecimen Comment: No. of containers..01 ThinPrep Vial Result Comment: Dottie Barnes, Computer Hardware Designer (ASCP) Performed By: #### L 400.0100, L500.2900, L100.0200 #### [facility] [address] [place], [place], [address] Thyroid Peroxidase ABon - THYR PEROX AB 17 IU/mL Normal 0-34 [facility] Comment on above: Result Comment: Perf ormed at: [facility] [id number] Naval Marine Engineer: Juan Salgado PhD, Phone: [phone] Performed By: #### L 501.84397, L3300.2528, L501.6565, L506.5046 #### [facility] [address] [place], [place], [address] Outpatient Surgery Rn Cyto stain Nom (C vx/Vag) [ID]Ordered By: Becca Win on 10-06-2024 Pap Smear Performed By Comment . [facility] Comment on above: Dottie Barnes, Cytotec hnologist (ASCP) Cytology report Cyto stain D oc (Cvx/Vag)Ordered By: Becca Win on 10-06-2024 Thin Prep Pap Smear Comment . [facility] Comment on above: The Pap [...] 10-06-2024 HPV Genotype Special Info Comment . [facility] Comment on above: Criteria not met, HP V Genotype not performed.Performed at: [facility] [id number] [place], [place] [id number] Director: Srikanth Maldonado MD, Phone: [phone] at: [facility] - [facility] [address] [id number] Director: Margret Martinez MD, Phone: [phone] at: =G - [facility] [address] [id number] Director: Margret Martinez MD, Phone: [phone] Free T3on 10-06-2024 Free T3 [Mass/Vol] 3.0 pg/mL Normal 2.18-3.98 [facility] Comment on above: Performed By: #### L 501.61769, L3300.6900, L501.9520, L506.0400 #### [facility] [address] [place] [address]. [place], [address] Free W7Hsitufx By: Becca sanches on 10-06-2024 Free Triiodothyronine (T3) pg/dL 3.0 pg/mL 2.18-3.98 [facility] HPV 16+18+31+33+35+39+45+51+ 52+56+58+59+66+68 DNA Probe+sig amp Ql (Cvx)Ordered By: Becca Win on 10-06-2024 Human Papillomavirus High Risk Negative Negative [facility] Comment on above: This nucleic acid am plification test detects fourteen high- risk HPV types (16,18,31,33,35,39,45,51,52,56,58,59,66,68)without differentiation. Image-guided ThinPrep PapOrd ered By: Becca Win on 10-06-2024 Pap Smear Note Comment . [facility] Comment on above: This liquid based Th inPrep(R) pap test was screened withthe use of an image guided system. Image-guided liquid-based Pa pOrdered By: Becca Win on 10-06-2024 Pap Smear Diagnosis Comment . [facility] Comment on above: NEGATIVE FOR INTRAEP ITHELIAL LESION OR MALIGNANCY. 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 Normal [facility] Service comment (Unsp spec) [Interp]Ordered By: Becca Win on 10-06-2024 Pap Smear Comment (3) . . [facility] T4 Free Directon 10-06-2024 T4 FREE DIRECT 1.00 ng/dL Normal 0.76-1.46 [facility] Comment on above: Performed By: #### L 501.15862, L3300.6900, L501.9520, L506.0400 #### [facility] [address] [place], [address] T4 freeOrdered By: Becca sanches on 10-06-2024 Free T4 [Mass/Vol] 1.00 ng/dL 0.76-1.46 [facility] TPO Ab QnOrdered By: Becca Win on 10-06-2024 Thyroid Peroxidase Antibodies 17 IU/mL 0-34 [facility] Comment on above: Performed at: [place] [id number] Director: Juan Salgado PhD, Phone: [phone] TSH DL <= 0.005 mIU/L QnOrde red By: Becca Win on 10-06-2024 Thyroid Stimulating Hormone (TSH) 2.050 uIU/mL 0.300-4.200 [facility] Thyroid Stim Hormone (TSH)on 10-06-2024 TSH 2.050 uIU/mL Normal 0.300-4.200 [facility] Comment on above: Performed By: #### L 501.25208, L3300.6900, L501.9520, L506.0400 #### [facility] [address] [place], [address] Chiropractic Reporton 2023 Chiropractic Report [facility] [address] [place] [address] OFFICE VISIT Date of Service: 06/02/24 MR#: [id number] Acct: [id number] Name: SORAYA ZENG Rep #: [id number] : 1985 Provider: LORAINE Pina Age/Sex: 38/F [facility] Status: Signed Intake Vital Signs 05/06/23 09:04 [...] CPT Codes Procedures - Manipulation: 3-4 regions (07267) Procedures - Hot and/or cold packs: Yes (76554) 06/02/24 1229 Date Shamika Rangelignelma Signature: Date (if applicable) CC: Normal [facility] CBC, Employeeon 05-18-2024 Absolute Lymph 2.81 X10 3/uL Normal 0.83-4.51 [facility] Comment on above: Performed By: #### L 400.0100, L500.2900, L100.0200 #### [facility] [address] [place], [address] Absolute Neut 5.8 X10 3/uL Normal 2.0-7.7 [facility] Comment on above: Performed By: #### L 400.0100, L500.2900, L100.0200 #### [facility] [address] [place], [address] Basophils/100 WBC (Bld) 0.3 % Normal 0-1 [facility] Comment on above: Performed By: #### L 400.0100, L500.2900, L100.0200 #### [facility] [address] [place], [address] Eosinophils/100 WBC (Bld) 1.1 % Normal 0-5 [facility] Comment on above: Performed By: #### L 400.0100, L500.2900, L100.0200 #### [facility] [address] [place], [address] Erythrocyte distribution width (RBC) [Ratio] 11.8 % Normal 11.6-14.6 [facility] Comment on above: Performed By: #### L 400.0100, L500.2900, L100.0200 #### [facility] [address] [place], [address] Hematocrit (Bld) [Volume fraction] 37.5 % Normal 37-47 [facility] Comment on above: Performed By: #### L 400.0100, L500.2900, L100.0200 #### [facility] [address] [place], [address] Hemoglobin (Bld) [Mass/Vol] 13.0 g/dL Normal 12.0-15.0 [facility] Comment on above: Performed By: #### L 400.0100, L500.2900, L100.0200 #### [facility] [address] [place], [address] Lymphocytes/100 WBC (Bld) 30.0 % Normal 19-41 [facility] Comment on above: Performed By: #### L 400.0100, L500.2900, L100.0200 #### [facility] [address] [place], [address] MCH (RBC) [Entitic mass] 29.7 pg Normal 27.0-32.0 [facility] Comment on above: Performed By: #### L 400.0100, L500.2900, L100.0200 #### [facility] [address] [place], [address] MCHC (RBC) [Mass/Vol] 34.7 g/dL Normal 32-36 [facility] Comment on above: Performed By: #### L 400.0100, L500.2900, L100.0200 #### [facility] [address] [place], [address] MCV (RBC) [Entitic vol] 85.6 fL Normal 81-99 [facility] Comment on above: Performed By: #### L 400.0100, L500.2900, L100.0200 #### [facility] [address] [place], [address] Monocytes/100 WBC (Bld) 5.9 % Normal 0-10 [facility] Comment on above: Performed By: #### L 400.0100, L500.2900, L100.0200 #### [facility] [address] [place], [address] Neutrophils/100 WBC (Bld) 62.3 % Normal 47-70 [facility] Comment on above: Performed By: #### L 400.0100, L500.2900, L100.0200 #### [facility] [address] [place], [address] NRBC # 0.00 10 3/uL Normal 0-5 [facility] Comment on above: Performed By: #### L 400.0100, L500.2900, L100.0200 #### [facility] [address] [place], [address] Nucleated RBC (Bld) [#/Vol] 0 10*3/uL Normal 0-5 [facility] Comment on above: Performed By: #### L 400.0100, L500.2900, L100.0200 #### [facility] [address] [place], [address] Platelet mean volume (Bld) [Entitic vol] 10.4 fL Normal 6.2-12.0 [facility] Comment on above: Performed By: #### L 400.0100, L500.2900, L100.0200 #### [facility] [address] [place], [address] Platelets (Bld) [#/Vol] 226 10*3/uL Normal 150-450 [facility] Comment on above: Performed By: #### L 400.0100, L500.2900, L100.0200 #### [facility] [address] [place], [address] RBC (Bld) [#/Vol] 4.38 10*6/uL Normal 4.2-5.4 [facility] Comment on above: Performed By: #### L 400.0100, L500.2900, L100.0200 #### [facility] [address] [place], [address] RDW SD 36.7 fl Normal 35.1-43.9 [facility] Comment on above: Performed By: #### L 400.0100, L500.2900, L100.0200 #### [facility] [address] [place], [address] WBC (Bld) [#/Vol] 9.4 10*3/uL Normal 4.4-11.0 [facility] Comment on above: Performed By: #### L 400.0100, L500.2900, L100.0200 #### [facility] [address] [place], [address] Employee Profileon Albumin [Mass/Vol] 4.0 g/dL Normal 3.2-5.0 [facility] Comment on above: Performed By: #### L 400.0100, L500.2900, L100.0200 #### [facility] [address] [place], [address] Albumin/Globulin [Mass ratio] 1.2 {ratio} Normal 0.9-2.4 [facility] Comment on above: Performed By: #### L 400.0100, L500.2900, L100.0200 #### [facility] [address] [place], [address] ALK P 61 U/L Normal 45-117 [facility] Comment on above: Performed By: #### L 400.0100, L500.2900, L100.0200 #### [facility] [address] [place], [address] ALT [Catalytic activity/Vol] 25 U/L Normal 13-56 [facility] Comment on above: Performed By: #### L 400.0100, L500.2900, L100.0200 #### [facility] [address] [place], [address] AST [Catalytic activity/Vol] 19 U/L Normal 15-37 [facility] Comment on above: Performed By: #### L 400.0100, L500.2900, L100.0200 #### [facility] [address] [place], [address] Bilirubin [Mass/Vol] 1.30 mg/dL High 0.20-1.00 [facility] Comment on above: Result Comment: For patients on eltrombopag therapy, use of Dimension [place] TBIL is not recommended. Performed By: #### L 400.0100, L500.2900, L100.0200 #### [facility] [address] [place], [address] Bilirubin.direct [Mass/Vol] 0.31 mg/dL High 0.00-0.30 [facility] Comment on above: Performed By: #### L 400.0100, L500.2900, L100.0200 #### [facility] [address] [place], [address] BUN/CRE 14.7 RATIO Normal 10-20 [facility] Comment on above: Performed By: #### L 400.0100, L500.2900, L100.0200 #### [facility] [address] [place], [address] CA,Total 8.7 mg/dL Normal 8.5-10.1 [facility] Comment on above: Performed By: #### L 400.0100, L500.2900, L100.0200 #### [facility] [address] [place], [address] Chloride [Moles/Vol] 107 mmol/L Normal 98-107 [facility] Comment on above: Performed By: #### L 400.0100, L500.2900, L100.0200 #### [facility] [address] [place], [address] CHOL:HDL 2.10 Normal [facility] Comment on above: Performed By: #### L 400.0100, L500.2900, L100.0200 #### [facility] [address] [place], [address] Cholesterol [Mass/Vol] 163 mg/dL Normal 200 [facility] Comment on above: Result Comment: <200 mg/dL Desirable 200-240 mg/dL Borderline >240 mg/dL High Risk Performed By: #### L 400.0100, L500.2900, L100.0200 #### [facility] [address] [place], [address] Cholesterol in HDL [Mass/Vol] 79 mg/dL Normal [facility] Comment on above: Result Comment: The drugs N-Acetylcysteine and Metamizole may falsely depress this assay. Reference Range HDL <40 mg/dL Low HDL Cholesterol HDL >or= 60 mg/dL High HDL Cholesterol Performed By: #### L 400.0100, L500.2900, L100.0200 #### [facility] [address] [place], [address] Cholesterol in LDL [Mass/Vol] 71 mg/dL Normal 0-130 [facility] Comment on above: Performed By: #### L 400.0100, L500.2900, L100.0200 #### [facility] [address] [place], [address] Cholesterol in VLDL [Mass/Vol] 13 mg/dL Normal 5-40 [facility] Comment on above: Performed By: #### L 400.0100, L500.2900, L100.0200 #### [facility] [address] [place], [address] CO2 [Moles/Vol] 26.0 mmol/L Normal 21.0-32.0 [facility] Comment on above: Performed By: #### L 400.0100, L500.2900, L100.0200 #### [facility] [address] [place], [address] Creatinine [Mass/Vol] 0.81 mg/dL Normal 0.55-1.02 [facility] Comment on above: Result Comment: The validity of the calculated GFR GFRAA in patients over 70 years has not been determined. Clinical correlation is essential. Performed By: #### L 400.0100, L500.2900, L100.0200 #### [facility] [address] [place], [address] EST GFR - AA 102 mL/min Normal >60 [facility] Comment on above: Result Comment: Afri can Bahamian GFR Calc Performed By: #### L 400.0100, L500.2900, L100.0200 #### [facility] [address] [place], [address] GAP 5 Normal 5-15 [facility] Comment on above: Performed By: #### L 400.0100, L500.2900, L100.0200 #### [facility] [address] [place], [address] GFR/1.73 sq M.predicted among non-blacks MDRD (S/P/Bld) [Vol rate/Area] 84 mL/min/{1.73_m2} Normal >60 [facility] Comment on above: Result Comment: Non- GFR Calc Performed By: #### L 400.0100, L500.2900, L100.0200 #### [facility] [address] [place], [address] Globulin (S) [Mass/Vol] 3.4 g/dL Normal 2.2-4.2 [facility] Comment on above: Performed By: #### L 400.0100, L500.2900, L100.0200 #### [facility] [address] [place], [address] Glucose [Mass/Vol] 86 mg/dL Normal 74-106 [facility] Comment on above: Performed By: #### L 400.0100, L500.2900, L100.0200 #### [facility] [address] [place], [address] LDH 147 U/L Normal 84-246 [facility] Comment on above: Performed By: #### L 400.0100, L500.2900, L100.0200 #### [facility] [address] [place], [address] Phosphate [Mass/Vol] 3.4 mg/dL Normal 2.5-4.9 [facility] Comment on above: Performed By: #### L 400.0100, L500.2900, L100.0200 #### [facility] [address] [place], [address] Potassium [Moles/Vol] 3.9 mmol/L Normal 3.5-5.1 [facility] Comment on above: Performed By: #### L 400.0100, L500.2900, L100.0200 #### [facility] [address] [place], [address] Sodium [Moles/Vol] 138 mmol/L Normal 136-145 [facility] Comment on above: Performed By: #### L 400.0100, L500.2900, L100.0200 #### [facility] [address] [place], [address] T PROT 7.4 g/dL Normal 6.4-8.2 [facility] Comment on above: Performed By: #### L 400.0100, L500.2900, L100.0200 #### [facility] [address] [place], [address] Triglyceride [Mass/Vol] 67 mg/dL Normal [facility] Comment on above: Result Comment: The drugs N-Acetylcysteine and Metamizole may falsely depress this assay. Serum Triglycerides Reference Interval Normal <150 mg/dL Borderline high 150 - 199 mg/dL High 200 - 499 mg/dL Very High > or = 500 mg/dL Performed By: #### L 400.0100, L500.2900, L100.0200 #### [facility] [address] [place], [address] Urea nitrogen [Mass/Vol] 12 mg/dL Normal 7-18 [facility] Comment on above: Performed By: #### L 400.0100, L500.2900, L100.0200 #### [facility] [address] [place], [address] URIC 4.3 mg/dL Normal 2.6-6.0 [facility] Comment on above: Result Comment: The drugs N-Acetylcysteine and Metamizole may falsely depress this assay. Performed By: #### L 400.0100, L500.2900, L100.0200 #### [facility] [address] [place], [address] Urinalysis, Employeeon 05-18 BILIRUBIN URINE Negative Normal Negative [facility] Comment on above: Order Comment: CLEAN CATCH Performed By: #### L 400.0100, L500.2900, L100.0200 #### [facility] [address] [place], [address] Clarity (U) Clear Normal Clear [facility] Comment on above: Order Comment: CLEAN CATCH Performed By: #### L 400.0100, L500.2900, L100.0200 #### [facility] [address] [place], [address] Color (U) Yellow Normal Yellow [facility] Comment on above: Order Comment: CLEAN CATCH Performed By: #### L 400.0100, L500.2900, L100.0200 #### [facility] [address] [place], [address] GLUCOSE, UR Normal Normal Normal [facility] Comment on above: Order Comment: CLEAN CATCH Performed By: #### L 400.0100, L500.2900, L100.0200 #### [facility] [address] [place], [address] KETONE UR Negative Normal Negative [facility] Comment on above: Order Comment: CLEAN CATCH Performed By: #### L 400.0100, L500.2900, L100.0200 #### [facility] [address] [place], [address] LEUK ESTERASE 25 /ul Abnormal Negative [facility] Comment on above: Order Comment: CLEAN CATCH Performed By: #### L 400.0100, L500.2900, L100.0200 #### [facility] [address] [place], [address] Nitrite Ql (U) Negative Normal Negative [facility] Comment on above: Order Comment: CLEAN CATCH Performed By: #### L 400.0100, L500.2900, L100.0200 #### [facility] [address] [place], [address] OCCULT BLOOD-UR Negative Normal Negative [facility] Comment on above: Order Comment: CLEAN CATCH Performed By: #### L 400.0100, L500.2900, L100.0200 #### [facility] [address] [place], [address] pH UR 6.0 Normal 5.0 - 8.0 [facility] Comment on above: Order Comment: CLEAN CATCH Performed By: #### L 400.0100, L500.2900, L100.0200 #### [facility] [address] [place], [address] PROT DIPSTX Negative Normal Negative [facility] Comment on above: Order Comment: CLEAN CATCH Performed By: #### L 400.0100, L500.2900, L100.0200 #### [facility] [address] [place], [address] SP.GR. DIPSTX 1.020 Normal 1.002-1.030 [facility] Comment on above: Order Comment: CLEAN CATCH Performed By: #### L 400.0100, L500.2900, L100.0200 #### [facility] [address] [place], [address] UROBILI Normal Normal Normal [facility] Comment on above: Order Comment: CLEAN CATCH Performed By: #### L 400.0100, L500.2900, L100.0200 #### [facility] [address] [place], [address] CNTHERAPYon 04-05-2023 CNTHERAPY OT/PT/Speech Visit (PTWS) SORAYA ZENG ([id number]) 1985 F Date Time Provider Department 04/05/23 10:45 AM DORI MONDRAGON Date Time Provider Department [place] 04/05/2023 10:45 AM [id number] MONDRAGON [place] [facility] Reason for Visit: PT Eval [747] PT [...] 1 tablet by mouth once daily. Normal [facility] Basophil percentageon 2021 Basophil percentage 0-5 SEEN /hpf 0-5 [facility] Work Phone: Bilirubin Test strip Ql (U)o n 01-15-2022 Bilirubin Ql (U) Negative Negative [facility] Work Phone: Ketones Test strip Ql (U)on 01-15-2022 Ketones Ql (U) Negative Negative [facility] Work Phone: Mucus LM Ql (Urine sed)on Mucus Ql (Urine sed) 0 SEEN /hpf [facility] Work Phone: Nitrite Test strip Ql (U)on 01-15-2022 Nitrite Ql (U) Negative Negative [facility] Work Phone: Protein Test strip Ql (U)on 01-15-2022 Protein Ql (U) Negative Negative [facility] Work Phone: Squamous epithelial cells de tection in urine sediment by light microscopyon 01-15-2022 Epithelial cells.squamous LM Ql (Urine sed) 0 SEEN /hpf 5-10 [facility] Work Phone: Urine blood detectionon 12-23 RBC Ql (U) Negative Negative [facility] Work Phone: RBC Ql (U) 0 SEEN /hpf 0-5 [facility] Work Phone: Urine clarityon 01-15-2022 Clarity (U) Clear Clear [facility] Work Phone: Urine color determinationon 01-15-2022 Color (U) Straw Yellow [facility] Work Phone: Urine glucose detectionon Glucose Ql (U) Normal mg/dl Normal [facility] Work Phone: Urine leukocyte esterase det ection by dipstickon 01-15-2022 Leukocyte esterase Test strip Ql (U) 25 /ul Negative [facility] Work Phone: Urine pHon 01-15-2022 pH (U) 6.0 [pH] 5.0 - 8.0 [facility] Work Phone: Urine sediment bacteria coun t by microscopy (number/high power field)on 01-15-2022 Bacteria LM.HPF (Urine sed) [#/Area] 0 /[HPF] None Seen [facility] Work Phone: Urine specific gravity measu rementon 01-15-2022 Specific gravity (U) [Rel density] 1.010 1.002-1.030 [facility] Work Phone: Urobilinogen Auto test strip Ql (U)on 01-15-2022 Urobilinogen Ql (U) Normal mg/dl Normal [facility] Work Phone: Laboratory - Chemistry and C hemistry - challengeon 01-14-2022 Bilirubin Ql (U) Negative [facility] Work Phone: Glucose Ql (U) Negative [facility] Work Phone: Ketones Ql (U) Trace (5) [facility] Work Phone: pH (U) 5.0 [pH] [facility] Work Phone: Urobilinogen (U) [Mass/Vol] Negative [facility] Work Phone: Laboratory - Hematology and Cell countson 01-14-2022 Hemoglobin Ql (U) Negative [facility] Work Phone: Laboratory - Specimen inform ationon 01-14-2022 Clarity (U) Slightly Hazy [facility] Work Phone: Color (U) STRAW [facility] Work Phone: Laboratory - Urinalysison Nitrite Ql (U) Negative [facility] Work Phone: Protein Ql (U) Negative [facility] Work Phone: No Panel Informationon 01-14 Urine Leukocytes Negatve [facility] Work Phone: Urine Non-Hemolyzed Blood Negative [facility] Work Phone: Office Visit: Spine Visit- R [...] smoker [facility] Work Phone: Tobacco use [facility] Never smoker Invalid Interpretation Code [facility] Work Phone: Culture, urine Bacteria identified Cx Nom (U) Escherichia coli [facility] Work Phone: Vital Signs Date Time Vital Sign Value Performing Clinician Facility 04-20-2025 09:42-0400 Body mass index (BMI) [Ratio] 30.85 kg/m2 Darvin Rodriguez APRN - PAVEL Work Phone: [facility] 04-20-2025 09:42-0400 Body temperature 98.6 [degF] Darvin Rodriguez APRN - AMBULATORY NURSE Work Phone: [facility] 04-20-2025 09:42-0400 Body weight 78.38 kg Darvin Rodriguez APRN - PAVEL Work Phone: [facility] 04-20-2025 09:42-0400 Diastolic blood pressure 72 mm[Hg] Darvin Rodriguez APRN - PAVEL Work Phone: [facility] 04-20-2025 09:42-0400 Heart rate 80 /min Darvin Rodriguez APRN - PAVEL Work Phone: [facility] 04-20-2025 09:42-0400 Respiratory rate 20 /min Darvin Rodriguez APRN - PAVEL Work Phone: [facility] 04-20-2025 09:42-0400 SaO2% (BldA) [Mass fraction] 96 % Darvin Rodriguez APRN - PAVEL Work Phone: [facility] 04-20-2025 09:42-0400 Systolic blood pressure 102 mm[Hg] Darvin Rodriguez APRN - PAVEL Work Phone: [facility] 10-06-2024 13:06-0400 Body height 160.[address] Swathi Bond MD Work Phone: [facility] 10-06-2024 13:06-0400 Body mass index (BMI) [Ratio] 29.5 kg/m2 Dr. Swathi Bond MD Work Phone: [facility] 10-06-2024 13:06-0400 Body weight 75.[address] Swathi Bond MD Work Phone: [facility] 10-06-2024 13:06-0400 Diastolic blood pressure 83 mm[Hg] Dr. Swathi Bond MD Work Phone: [facility] 10-06-2024 13:06-0400 Systolic blood pressure 120 mm[Hg] Dr. Swathi Bond MD Work Phone: [facility] 02-14-2024 09:55-0400 Body height 159.4 cm Swathi Bond MD Work Phone: [facility] 02-14-2024 09:55-0400 Body mass index (BMI) [Ratio] 27.96 kg/m2 Swathi Bond MD Work Phone: [facility] 02-14-2024 09:55-0400 Body weight 71.03 kg Swathi Bond MD Work Phone: [facility] 02-14-2024 09:55-0400 Diastolic blood pressure 88 mm[Hg] Swathi Bond MD Work Phone: [facility] 02-14-2024 09:55-0400 Heart rate 84 /min Swathi Bond MD Work Phone: [facility] 02-14-2024 09:55-0400 SaO2% (BldA) [Mass fraction] 98 % Swathi Bond MD Work Phone: [facility] 02-14-2024 09:55-0400 Systolic blood pressure 125 mm[Hg] Swathi Bond MD Work Phone: [facility] 11-15-2023 09:56-0400 Body height 158.8 cm Swathi Bond MD Work Phone: [facility] 11-15-2023 09:56-0400 Body mass index (BMI) [Ratio] 25.85 kg/m2 Swathi Bodn MD Work Phone: [facility] 11-15-2023 09:56-0400 Body temperature 98.4 [degF] Swathi Bond MD Work Phone: [facility] 11-15-2023 09:56-0400 Body weight 65.14 kg Swathi Bond MD Work Phone: [facility] 11-15-2023 09:56-0400 Diastolic blood pressure 81 mm[Hg] Swathi Bond MD Work Phone: [facility] 11-15-2023 09:56-0400 Heart rate 79 /min Swathi Bond MD Work Phone: [facility] 11-15-2023 09:56-0400 SaO2% (BldA) [Mass fraction] 98 % Swathi Bond MD Work Phone: [facility] 11-15-2023 09:56-0400 Systolic blood pressure 125 mm[Hg] Swathi Bond MD Work Phone: [facility] 01-14-2022 12:56-0400 Body temperature 98.4 [degF] Dr. Swathi Bond Work Phone: [facility] Work Phone: 01-14-2022 12:56-0400 Diastolic blood pressure 64 mm[Hg] Dr. Swathi Bond Work Phone: [facility] Work Phone: 01-14-2022 12:56-0400 Heart rate 81 /min Dr. Swathi Bond Work Phone: [facility] Work Phone: 01-14-2022 12:56-0400 Respiratory rate 14 /min Dr. Swathi Bond Work Phone: [facility] Work Phone: 01-14-2022 12:56-0400 SaO2% (BldA) [Mass fraction] 99 % Dr. Swathi Bond Work Phone: [facility] Work Phone: 01-14-2022 12:56-0400 Systolic blood pressure 112 mm[Hg] Dr. Swathi Bond Work Phone: [facility] Work Phone: 10-23-2016 10:45-0400 BMI (Body Mass Index) 25.2 kg/m2 Shamika Shepard DC [facility] Work Phone: 10-23-2016 [id number] Body weight 63.5 kg Shamika Shepard DC [facility] Work Phone: 10-23-2016 10:45-0400 BP Diastolic 60 mm[Hg] Shamika Joysi LORAINE [facility] Work Phone: 10-23-2016 10:45-0400 BP Systolic 108 mm[Hg] Shamika Shepard DC [facility] Work Phone: 10-23-2016 10:45-0400 Height 158.75 cm Shamika Shepard DC [facility] Work Phone: 10-23-2016 10:45-0400 Weight 63.5 kg Shamika Shepard DC [facility] Work Phone: Encounters Encounter Date Encounter Type Care Provider Facility Start: 04-20-2025 End: 04-20-2025 ambulatory [facility] Start: 04-20-2025 End: 04-20-2025 Patient encounter procedure Darvin Rodriguez MEDICAL TERRITORY MANAGER - AMBULATORY NURSE Work Phone: [facility] Work Phone: Start: 04-20-2025 End: 04-20-2025 Periodic preventive med est patient 18-39 yrs Darvin Rodriguez MEDICAL TERRITORY MANAGER - AMBULATORY NURSE Work Phone: [facility] Comment on above: Annual physical exam (Primary Dx); Obesity (BMI 30.0-34.9); Grieving; Influenza vaccine refused Start: 04-06-2025 End: 04-06-2025 Telephone encounter Swathi Bond MD Work Phone: [facility] Comment on above: Appointment Request (Sooner Physical appt) Start: 03-18-2025 ambulatory Health Risk Assessment Facility:[facility] Start: 10-06-2024 Encounter for gynecological examination (general) (routine) without abnormal findings Becca Win [facility] Start: 10-06-2024 End: 10-06-2024 Patient encounter procedure Becca Audelia RECRUIT INSTRUCTOR-C -[facility] Work Phone: Start: 10-06-2024 End: 10-06-2024 Patient encounter status Becca Audelia RECRUIT INSTRUCTOR-C [facility] Start: 10-06-2024 End: 10-06-[address] Swathi Bond MD Work Phone: [facility] Work Phone: Start: 10-06-2024 End: 10-06-2024 ambulatory Becca Win Facility:[facility] Start: 06-02-2024 End: 06-02-2024 ambulatory Swathi Bond [facility] Start: 05-18-2024 ambulatory Swathi Young Facility :[facility] Start: 02-14-2024 End: 02-14-2024 Office outpatient visit 10 minutes Swathi Bond MD Work Phone: [facility] Comment on above: Bereavement reaction (Primary Dx) Start: 11-15-2023 End: 11-15-2023 Office outpatient visit 15 minutes Swathi Bond MD Work Phone: [facility] Comment on above: Bereavement reaction (Primary Dx); Viral upper respiratory tract infection; Acute cough Start: 04-05-2023 End: 04-05-2023 ambulatory DORI LOPEZ Facility:[facility] Start: 04-05-2023 End: 04-05-2023 ambulatory Dori Lopez PT Work Phone: [facility] Comment on above: JAHAIRA (stress [...] encounter procedure Dr. Swathi Bond Work Phone: [facility] Start: 01-14-2022 End: 01-14-[address] Swathi Bond Work Phone: [facility], Specimen Start: 12-18-2021 End: 12-18-[address] Swathi Bond Work Phone: [facility] Procedures Date Procedure Procedure Detail Performing Clinician Start: 04-20-2025 Adult depression scr eening assessment Darvin Rodriguez MEDICAL TERRITORY MANAGER - AMBULATORY NURSE Work Phone: Start: 10-06-2024 Microscopic observat ion [...] for Adults (1 - 1-dose 75+ series) [facility] Start: 2047 RSV Immunization age d 60 or older (1 - 1-dose 60+ series) RSV Immunization aged 60 or older (1 - 1-dose 60+ series) [facility] Start: 11-11-2037 Zoster Vaccines (1 o f 2) Zoster Vaccines (1 of 2) [facility] Start: 10-07-2027 Screening for malign ant neoplasm of cervix [facility] Start: 04-20-2026 Depression Screening Depression Scre ening [facility] Start: 04-12-2026 End: 04-12-2026 Patient encounter procedure 04/12/2026 9:20 AM EDT Office Visit [facility] [address] [place] [address] Marie Cheek APRN - AMBULATORY NURSE [address] [place] [address] [facility] Start: 12-21-2025 Influenza vaccination Influenza Vacc ine (#1) [facility] Comment on above: Postponed from 02/22 (Patient Refused) Start: 06-30-2025 End: 06-30-2025 Patient encounter procedure 06/30/2025 1:15 PM EST Office Visit [facility] [address] [place] [address] Sawthi Bond MD [address] [place] [address] [facility] Start: 02-22-2025 COVID-19 Vaccine ( season) COVID-19 Vaccine ( season) [facility] Start: 02-22-2025 Influenza vaccination Influenza Vacc ine (#1) [facility] Start: 02-13-2025 Depression Screening Depression Scre ening [facility] Start: 03-13-2024 DTaP/Tdap/Td Vaccine s (2 - Td or Tdap) DTaP/Tdap/Td Vaccines (2 - Td or Tdap) [facility] Start: 02-23-2024 Influenza vaccination S [facility] Start: 02-14-2024 End: 02-14-2024 Patient encounter procedure 02/14/2024 10:00 AM EDT Office Visit [facility] [address] [facility] [place] [address] Swathi Bond MD [address] [place] [address] [place] [address] [facility] Start: 02-22-2023 Covid-19 Vaccine () Covid-19 Vaccine ( season) [facility] Start: 02-22-2023 Influenza vaccination Influenza Vacc ine (#1) [facility] Start: 06-24-2022 Depression Assessment Depression Ass essment [facility] Start: 10-04-2020 COVID-19 Vaccine (3 - Booster for Moderna series) COVID-19 Vaccine (3 - Booster for Moderna series) [facility] Start: 11-11-2017 HPV Testing HPV Testing [facility] Start: 11-11-2017 Screening for malign ant neoplasm of cervix [facility] Start: 01-17-2017 End: 01-17-2017 Appointment Appointment Personal Estate Manager Chiropractic Work Phone: Start: 12-27-2016 End: 12-27-2016 Appointment Appointment Personal Estate [facility] Chiropractic Work Phone: Start: 11-07-2016 End: 11-07-2016 Appointment Appointment Personal Estate [facility] Chiropractic Work Phone: Start: 10-23-2016 End: 10-23-2016 Appointment Appointment Personal Estate Manager Chiropractic Work Phone: Start: 03-08-2016 Pap Testing Pap Testing [facility] Start: 11-11-2008 Screening for malign ant neoplasm of cervix Pap Smear [facility] Start: 11-11-2006 Hepatitis B Vaccines (1 of 3 - 19+ 3-dose series) Hepatitis B Vaccines (1 of 3 - 19+ 3-dose series) [facility] Start: 11-11-2006 Urine microalbumin profile DTaP,Tdap,Td Vaccine (1 - Tdap) [facility] Start: 11-11-2005 Hepatitis C screening [facility] Start: 11-11-2005 Hepatitis C Screening Hepatitis C [facility] Start: 11-11-2005 HIV Screening HIV Screening [facility] Start: 11-11-2000 Varicella vaccination Varicell a Vaccines (1 of 2 - 13+ 2-dose series) [facility] Start: 1999 Depression Screening Depression Scre ening [facility] Start: 11-11-1988 MMR Vaccines (1 of 1 - Standard series) MMR Vaccines (1 of 1 - Standard series) [facility] Start: 11-11-1988 Varicella vaccination Varicell a Vaccines (1 of 2 - 2-dose childhood series) [facility] Start: 1987 Hepatitis B Vaccine (1 of 3 - 3-dose series) Hepatitis B Vaccine (1 of 3 - 3-dose series) [facility] Start: 1987 Hepatitis B Vaccines (1 of 3 - 3-dose series) Hepatitis B Vaccines (1 of 3 - 3-dose series) [facility] Start: 1987 HIV screening HIV Screening [facility] Work Phone: Immunizations Immunization Date Immunization Notes Care Provider [facility] 05-10-2022 influenza, injectabl e, quadrivalent, preservative free Dr. Swathi Bond MD Work Phone: [facility] 05-10-2022 influenza, seasonal, injectable Norm Way RN [facility] 05-10-2022 influenza virus vaccine, unspecified formulation Dori Lopez PT Work Phone: [facility] 04-05-2021 influenza, injectabl e, quadrivalent, preservative free Dr. Swathi Bond MD Work Phone: [facility] 04-05-2021 influenza, seasonal, injectable Dr. Swathi Bond Work Phone: [facility] Work Phone: 04-05-2021 influenza, seasonal, injectable, preservative free Norm Way RN [facility] 04-04-2021 influenza virus vaccine, unspecified formulation Norm Way RN [facility] 08-09-2020 Covid ([facility]) Dr. Swathi Bond Work Phone: [facility] 07-12-2020 Jonasid ([facility]) Dr. Swathi Bond Work Phone: [facility] 04-03-2020 influenza, injectabl e, quadrivalent, preservative free Dr. Swatih Bond MD Work Phone: [facility] 04-03-2020 influenza, seasonal, injectable Dr. Swathi Bond Work Phone: [facility] Work Phone: 04-18-2019 influenza, injectabl e, quadrivalent, preservative free Dr. Swathi Bond MD Work Phone: [facility] 04-18-2019 influenza, seasonal, injectable Dr. Swathi Bond Work Phone: [facility] Work Phone: 04-18-2019 influenza, seasonal, injectable, preservative free Norm Way RN [facility] 03-30-2018 influenza, injectabl e, quadrivalent, preservative free Dr. Swathi Bond MD Work Phone: [facility] 03-30-2018 influenza, seasonal, injectable Dr. Swathi Bond Work Phone: [facility] Work Phone: 03-30-2018 influenza, seasonal, injectable, preservative free Norm Way RN [facility] 05-10-2017 influenza, injectabl e, quadrivalent, preservative free Dr. Swathi Bond MD Work Phone: [facility] 05-10-2017 influenza, seasonal, injectable Dr. Swathi Bond Work Phone: [facility] Work Phone: 05-10-2017 influenza, seasonal, injectable, preservative free Norm Way RN [facility] 04-03-2016 influenza, injectabl e, quadrivalent, preservative free Dr. Swathi Bond MD Work Phone: [facility] 04-03-2016 influenza, seasonal, injectable Dr. Swathi Bond Work Phone: [facility] Work Phone: 04-03-2016 influenza, seasonal, injectable, preservative free Norm Way RN [facility] 03-10-2015 influenza, injectabl e, quadrivalent, preservative free Dr. Swathi Bond MD Work Phone: [facility] 03-10-2015 influenza, seasonal, injectable Dr. Swathi Bond Work Phone: [facility] Work Phone: 03-24-2014 influenza, injectabl e, quadrivalent, preservative free Dr. Swathi Bond MD Work Phone: [facility] 03-24-2014 influenza, seasonal, injectable Dr. Swathi Bond Work Phone: [facility] Work Phone: 03-24-2014 influenza, seasonal, injectable, preservative free Norm Way RN [facility] 03-13-2014 tetanus toxoid, redu sandra diphtheria toxoid, and acellular pertussis vaccine, adsorbed Norm Way RN [facility] 07-02-[address] Swathi Bond Work Phone: [facility] 07-02-2013 influenza, seasonal, injectable Norm Way RN [facility] 07-02-2013 influenza, seasonal, injectable, preservative free Norm Way RN [facility] 04-23-[address] Swathi Bond Work Phone: [facility] 04-23-2013 influenza, seasonal, injectable Norm Way RN [facility] 04-23-2013 influenza, seasonal, injectable, preservative free Norm Way RN [facility] Payers Date Payer Category Payer Self-pay [id number] 2023 Commercial Managed C are - HMO A[employer]NE HA[employer] [id number] 2023 Private Health Insurance [employer] Cristal CALLYANNE SHABNAM [id number] 2023-Present [address] [place] [id number] Commercial [id number] 2023 Unknown [id number] 2022 Unknown [id number] 2022 Unknown [id number] Unknown [facility] [id number] Unknown [facility] [id number] Unknown [id number] Unknown [id number] Unknown [id number] Unknown [id number] Social History Date Type Detail Facility Start: 01-14-2022 Tobacco smoking stat us NHIS Unknown if ever smoked [facility] Work Phone: Start: 1985 Sex Assigned At Female W [facility] Start: 03-08-2011 End: 10-06-2024 Tobacco smoking status NHIS Never smoked tobacco [facility] Start: 04-19-2022 End: 02-14-2024 Alcohol intake Current non-drinker of alcohol (finding) [facility] Start: 1985 Sex Assigned At Not on file S [facility] Start: 10-20-2022 End: 10-30-2022 Exposure to SARS-CoV-2 (event) Not sure [facility] Start: 03-08-2011 Tobacco use and exposure Smoke less tobacco non-user [facility] Work Phone: Start: 02-07-2022 End: 04-20-2025 [facility] Start: 02-07-2022 End: 04-20-2025 Tobacco use panel [facility] Start: 01-22-2022 End: 10-09-2024 Sex Female (finding) [facility] Start: 04-20-2025 Alcoholic beverage intake Curr ent drinker of alcohol (finding) [facility] How often do you nee d to have someone help you when you read instructions, pamphlets, or other written material from your doctor or pharmacy [SILS] Never [facility] Has the [employer], [employer], [employer], or water [employer] threatened to shut off services in your home in past 12Mo No [facility] Do you belong to any clubs or organizations such as worship groups, unions, fraternal or athletic groups, or school groups? Yes [facility] Are you now , , , , never or living with a partner? [facility] How often to you hav e a drink containing alcohol? Monthly or less [facility] How many standard dr inks containing alcohol do you have on a typical day? 1 or 2 [facility] How hard is it for y ou to pay for the very basics like food, housing, medical care, and heating Not hard at all [facility] Do you feel stress - tense, restless, nervous, or anxious, or unable to sleep at night because your mind is troubled all the time - these days [OSQ] To some extent [facility] (I/We) worried wheth er (my/our) food would run out before (I/we) got money to buy more. Never true [facility] Start: 04-20-2025 Alcohol Comment One a month [facility] Goals Date Patient Goal Desired Activity /State Functional Status Date Assessment Result Facility 04-20-2025 Total score [AUDIT-C] 1 04/20/20 8:45 AM EDT Darvin Rodriguez APRN - CNP [facility] 04-20-2025 How often to you hav e a drink containing alcohol? Monthly or less 04/20/2025 8:45 AM LOT Darvin Rodriguez APRN - CNP Monthly or less [facility] 04-20-[address] inks containing alcohol do you have on a typical day? 1 or 2 04/20/2025 8:45 AM Darvin Reyes APRN - CNP 1 or 2 [facility] 04-20-2025 How often do you hav e 6 or more drinks on 1 occasion? Never 04/20/2025 8:45 AM EDT Darvin Rodriguez APRN - CNP Never [facility] 04-20-2025 Patient Health Quest ionnaire 2 item (PHQ-2) [Reported] [facility] 04-20-2025 Little interest or p rigo in doing things Not at all 04/20/2025 8:45 AM Darvin Reyes APRN - CNP Not at all [facility] 04-20-2025 Feeling down, depres sed, or hopeless Not at all 04/20/2025 8:45 AM EDT Darvin Rodriguez APRN - CNP Not at all [facility] Clinical Notes 10-29-2022 to 04-20-2025 Lolis [...] and exercise. Patient plans on getting a transition coach at her gym. Will continue to [...] drawn earlier this month at [facility] for work. 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 CMP and Lipid panel were normal. Patient lives at home with her three children. Her last tear. She denies being depressed or anxious, just going through the normal grieving process. States she has a lot of support through her worship, family, friends. She goes to counseling at [facility] in [facility] Britton is her counselor. Patient goes to the gym twice a week. She has gained 25 pounds since her last October. She stress eats when she gets sad or misses him. Patient follows with toll repairer central office for her pap smears and she is [...] for this visit. documented in this encounter [facility] 04-06-2025 Telephone encounter Note Form atting of this note might be different from the original. Name of Caller: Soraya Zeng Contact Reason for Appointment: Physical needed prior to 05/23/2025 for insurance, patient scheduled for 06/30/2024 the next available. Office Name: [facility] Medication Refills need, if any: NA Medication Name: NA [facility] 04-06-2025 Miscellaneous Notes Formattin g of this note might be different from the original. Name of Caller: Soraya Zeng Contact Reason for Appointment: Physical needed prior to 05/23/2025 for insurance, patient scheduled for 06/30/2024 the next available. Office Name: [facility] Medication Refills need, if any: NA Medication Name: NA documented in this encounter [facility] 10-06-2024 Note [facility] Pap Smear Specimen Adequacy October 06, 2024 11:59pm Comment . Satisfactory for evaluation. Endocervical and/or squamous metaplasticcells (endocervical component) are present. Comment on above: Satisfactory for ana cristina luation. Endocervical and/or squamous metaplasticcells (endocervical component) are present. 10-06-2024 Evaluation note Diagnosis Onset Date Resolution Encounter for IUD removal acute October 06, 2024 1:04pm Encounter for routine gynecological examination noneactive October 06, 2024 1:04pm [facility] Work Phone: 1(900) 298-930808-23-2024 Evaluation + Plan note* Assessment & Plan Note - Swathi Bond MD - 02/14/2024 10:32 AM EDTAssociated Problem(s): Bereavement reaction Doing very well, is returning to work her children are back in school [id number] Miscellaneous Notes* Assessment & Plan Note - Swathi Bond MD - 02/14/2024 10:32 AM EDTAssociated Problem(s): Bereavement reaction Doing very well, is returning to work her children are back in school documented in this [facility]08-23-2024 History of Present illness Narrative* [...] MD 02/14/2024 10:32 AM documented in this [facility]05-24-2024 Evaluation + Plan note* Assessment & Plan Note - Swathi Bond MD - 11/15/2023 11:01 AM EDT Associated Problem(s): Bereavement reaction Will have her take some time off from work to spend with her young children so that they can all get through this time of bereavement together. [facility] [id number] Miscellaneous Notes* Assessment & Plan Note - [...] accepted: Level of Service documented in this [facility]05-24-2024 Evaluation + Plan note* Assessment & Plan Note - Swathi Bond MD - 11/15/2023 11:00 AM EDT Associated Problem(s): Viral upper respiratory tract infection Mucinex DM, salt water gargles or Listerine gargles [facility] [id number] Evaluation + Plan note* Assessment & Plan Note - Swathi Bond MD - 11/15/2023 10:59 AM EDTAssociated Problem(s): Cough She is to get some Mucinex DM and take that twice a day increase her fluids salt water or Listerinegargles. [facility] [id number] History of Present illness Narrative* Swathi Bond [...] MD 11/20/2023 9:01 AM documented in this [facility]05-24-2024 Note* Addendum Note - Swahti Bond MD - 11/15/2023 9:45 AM EDTAddended by: SWATHI BOND on: 11/20/2023 09:01 AM Modules accepted: Level of Service [facility] [id number] NoteHNO ID: [id number] Author: Dori Mondragon, PT Service: ? 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 Recreation / Current Exercise: goes [...] Assessment Pelvic Floor Tendern (more content not included)...[facility] 04-05-2023 History of Present illness Narrative* Dori [...] of Care: created on 04/05/23 through 04/05/23 [place] in home exercise program.-MET Patient Goals: "make sure everything is okay" Planned Interventions, Frequency, and Duration: Current Frequency: Discontinue Therapy Services Planned Treatment Interventions: Therapeutic exercise (50633), Self-half-way management (86463) PLAN FOR NEXT VISIT: Pt to continue [...] (Benign) UNSPECIFIED ORAL SURGERY PROCEDURE, BY REPORT [place] Teeth Removed Relevant History Past Relevant Medical Conditions: (*see note) Past Relevant Surgical Conditions: (*see note) 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 Self-Custodial Management: 1: Reviewed pelvic floor anatomy and [...] Dori Cr Lopez, PT [facility] encounter Note * Telephone Encounter - KAL Herrera CNP - 10/30/2022 1:23 PM EDT Noted. Agree with disposition. [facility] [id number] Miscellaneous Notes* Telephone Encounter - KAL Herrera CNP - 10/30/2022 1:23 PM EDT Noted. Agree with disposition. * Telephone Encounter - Monserrat Méndez MA - 10/30/2022 1:17 PM EDT Scheduled with Jazmin today. * Telephone Encounter - Norm Way RN - 10/30/2022 1:06 PM EDT Reason for Disposition Cough has been present for > 3 weeks Protocols used: Cough - Acute Nlbpjiynbx-EAFVP-KB S: Patient calls for ongoing issues with uri type symptoms B: patient was seen a month ago in [facility] and prescribed atb. Patient states still has lingering symptoms A: Patient states productive yellow sputum cough at times. Has some left lower rib pain at times aswell as fatigue. Denies fever or sore throat or earache R: patient appt made per triage protocol. Patient verbalizes understanding of same documented in this [facility] [id number] Telephone encounter Note* Telephone Encounter - Monserrat Méndez MA - 10/30/2022 1:17 PM EDT Scheduled with Jazmin today. [facility] [id number] Telephone encounter Note* Telephone Encounter - Norm Way RN - 10/30/2022 1:06 PM EDT Reason for Disposition Cough has been present for > 3 weeks Protocols used: Cough - Acute Zohswiatem-ZTBPP-QJ S: Patient calls for ongoing issues with uri type symptoms B: patient was seen a month ago in [facility] and prescribed atb. Patient states still has lingering symptoms A: Patient states productive yellow sputum cough at times. Has some left lower rib pain at times aswell as fatigue. Denies fever or sore throat or earache R: patient appt made per triage protocol. Patient verbalizes understanding of same [facility] [id number] Telephone encounter Note* Telephone Encounter - Jessi [...] Protocols used: No Contact or Duplicate Contact [id number] [facility] [id number] Miscellaneous Notes* Telephone Encounter - Jessi Salomon [...] Protocols used: No Contact or Duplicate Contact [id number] documented [facility]* Diagnosis Onset Date Resolution Status Segmental and somatic dysfunction of cervical region acute Segmental and somatic dysfunction of lumbar region acute Segmental and somatic dysfunction of thoracic region acute UTI (urinary tract infection) [facility] Work Phone: Evaluation note* Diagnosis JAHAIRA (stress urinary incontinence, female)- Primary Female stress incontinence [facility]* Diagnosis Bereavement reaction- Primary Bereavement, uncomplicated Viral upper respiratory tract infection Acute upper respiratory infections of unspecified site Acute cough [facility]* Diagnosis Bereavement reaction- Primary Bereavement, uncomplicated documented in this encounter [facility] note* Diagnosis Bereavement reaction- Primary Bereavement, uncomplicated Viral upper respiratory tract infection Acute upper respiratory infections of unspecified site Acute cough Bereavement reaction- Primary Bereavement, uncomplicated Annual physical exam- Primary Routine general medical examination at a health care facility Obesity (BMI 30.0-34.9) Grieving Adjustment disorder with depressed mood Influenza vaccine refused documented in this encounter [facility] for referral (narrative)No reason for referral information [facility]Cos[facility] Work Phone: Chief Complaint and Reason for Visit Chief Complaint ADJUSTMENT Urinary tract infection Reason for Visit Segmental and somati c dysfunction of cervical region Segmental and somatic dysfunction of lumbar region Segmental and somatic dysfunction of thoracic region UTI (urinary tract infection) Chief Complaint Admit Date Annual (ABRASIVE MIXER) October 06, 2024 1:0 4pm Reason for Visit Admit Date Encounter for IUD removal October 06 1:04pm Encounter for routine gynecological exam ination October 06, 2024 1:04pm Advance Directives Advance Directive Response Recorded Date/ Time Living Will No March 03, 2020 1:54pm Power of Driver License Examiner No February 1:54pm Summary Purpose Family History [...] RS PT PELVIC PAIN/INCONT Raysa Joaquin [address] [place] [address] Julian Mondragona, PT [address] [place] [address] Referral ID Status Reason Start Date Expiration Date V isits Requested Visits Authorized [id number] Authorized 06/24/2022 06/23/2023 25 25 Reason Comments Forms/questionnaires Discuss FMLA Sore Throat Cough Bring up green/yello w and hurts to bring it up Reason Comments Follow-up Ready to return to w ork Reason Onset Date Comments Appointment Request 04/06/2025 Sooner Physi bhupinder appt Reason Comments Annual Exam Health Maintenance HIV Screening-declin edMMR Vaccines-declinedVaricella Vaccines-declinedHepatitis C Screening-declinedHepatitis B Vaccines-declinedDTaP/Tdap/Td Vaccines-declinedDepression Screening-completedInfluenza [id number] Vaccine-declined Care Teams (unrecognized sec tion and content) Baby Attendant Relationship Specialty Start Date End Date Swathi Bond MD [address] [place] [id number] PCP - General 02/11/15 Baby Attendant Relationship Specialty Start Date End Date Swathi Bond MD [address] [place] [id number] PCP - General 02/11/15 Baby Attendant Relationship Specialty Start Date End Date Swathi Bond MD [address] [place] [id number] PCP - General 02/11/15 Baby Attendant Relationship Specialty Start Date End Date Swathi Bond MD [address] [facility] [place] [address] PCP - General 02/11/15 Team Status: Active [...] October 06, 2024 End: October 06, 2024 Baby Attendant Relationship Specialty Start Date End Date Sw[facility] Bond [facility] [place] [address] PCP General 02/11/15 Baby Attendant Relationship Specialty Start Date End Date Swathi Bond [facility] [place] [address] PCP - General 02/11/15 Source Comments (unrecognize d section and content) In the event this informatio n is protected by the Federal Confidentiality of Alcohol and Drug Abuse Patient Records regulations: The Federal rules restrict any use of the information to criminally investigate or prosecute any alcohol or drug abuse patient.[facility] INFORMATION SOURCE (unrecogn ized section and content) DATE CREATED AUTHOR 04/07/2023 [facility] DATE CREATED AUTHOR AUTHOR'S ORGANIZ ATION 03/19/2025 [facility] DATE CREATED AUTHOR AUTHOR'S ORGANIZ ATION 04/22/2025 [facility] FOR RECORDS PERTAINING TO PATIENTS WHO ARE [...] ON THE PRIMARY CLINICAL RECORDS. [facility] [facility]. provides no warranty or guarantee of the accuracy or completeness of information in this document.
== END | disposition home or self-care (01) ==
PROVIDERS: PCP Family Medicine; Visit Provider Emergency Medicine
DX: S99.922A Unspecified injury of left foot, initial encounter (principal)
CPT/HCPCS: 73630